=== PATIENT | male | born 1965 | race Caucasian/White ===

== ENCOUNTER 2017-07-29 12:26 | Inpatient (IN) | payer BC ==
[~2017-07-29] VITALS: Ht 172.7 cm; Wt 93.0 kg
--- NOTE | ~2017-07-29 | ST ---
[place], [place] EXERCISE STRESS TEST REPORT NAME: ARLET LYON V [facility] #: [id number] UNIT #: [id number] ROOM: 521 DOCTOR: CARL MCKEON MD BIRTHDATE: [birth year] DOS: 07/30/2017 REQUESTING PHYSICIAN: New onset atrial fibrillation and fatigue. PROCEDURE: The patient was brought into the stress lab. The procedure was explained with risks, benefits, and alternatives. Lexiscan was injected. The patient tolerated the procedure well. Resting blood pressure 118/80 with ending blood pressure 110/64. ELECTROCARDIOGRAM INTERPRETATION: Resting electrocardiogram showed normal sinus rhythm, heart rate of 79. There was tiny Q-wave in II, III, aVF. Mild nonspecific ST changes. Following the infusion, there was no evidence of any ST or T-wave changes suggestive of myocardial ischemia. No arrhythmias were noted. SUMMARY: 1. Adequate Lexiscan stress test. 2. Negative Lexiscan stress test for stress induced myocardial ischemia. 3. No arrhythmias were noted. 4. Myoview results will be reported separately. CARL MCKEON MD CM:STRESS:EXERCISE STRESS TEST REPORT [id number] CARL MCKEON MD
[~2017-07-29 12:26] MED LIST: DUONEB 3 MG/3 ML3 M1 INH; LEVOFLOXACIN500 MG PO; LISINOPRIL HCTZ1 TA1 PO; LOPID600 M1 PO; METFORMIN500 MG PO; PRAVACHOL40 MG PO; VICODIN 500 MG-1 TAB PO; VITAMIN D50000 I3 PO
[2017-07-29 12:38] VITALS: BP 142/84
[2017-07-29 13:24] LABS: BASO # 0.1 10*3/uL (0.0-0.1); BASO % 0.4 % (0.0-1.0); EOS # 0.4 10*3/uL (0.0-0.4); EOS % 3.2 % (1.0-4.0); HEMATOCRIT 39.7 % (42.0-52.0); HEMOGLOBIN 13.9 g/dl (14.0-18.0); LYMPH # 1.6 10*3/uL (1.3-4.4); LYMPH % 13.9 % (27.0-41.0); MEAN CELL VOLUME 91.9 fl (80.0-94.0); MEAN CORPUSCULAR HGB 32.2 pg (27.0-31.0); MEAN PLATELET VOLUME 9.6 fl (9.6-12.3); MONO # 0.8 10*3/uL (0.1-1.0); MONO % 6.9 % (3.0-9.0); NEUT # 8.8 10*3/uL (2.3-7.9); NEUT % 75.3 % (47.0-73.0); PLATELET COUNT AUTOMATED 242 10*3/uL (130-400); RED BLOOD COUNT 4.32 10*6/uL (4.50-5.90); WHITE BLOOD COUNT 11.7 10*3/uL (4.8-10.8)
[2017-07-29 13:41] LABS: ALBUMIN 3.6 gm/dl (3.1-4.5); ALKALINE PHOSPHATASE 90 U/L (45-117); BUN 27 mg/dl (7-24); CHLORIDE 108 mmol/L (98-107); CREATININE 1.34 mg/dL (0.70-1.30); POTASSIUM 3.4 mmol/L (3.5-5.1); SGOT/AST 25 IU/L (3-35); SGPT/ALT 45 U/L (12-78); SODIUM 141 mmol/L (136-145); TROPONIN I < 0.015 ng/ml (<0.045)
[2017-07-29 14:00] VITALS: BP 129/85
[2017-07-29 14:04] VITALS: BP 146/99
[2017-07-29] MEDS ORDERED: ZOLOFT50 MG PO (14:44)
[2017-07-29] MEDS ORDERED: HYDR25T PO (14:44)
[2017-07-29] MEDS ORDERED: PRAVASTATIN SOD40 MG PO (14:44)
[2017-07-29] MEDS ORDERED: ZESTRIL40 MG PO (14:44)
[2017-07-29] MEDS ORDERED: IBU800 MG PO (14:45)
[2017-07-29] MEDS ORDERED: METFORMIN500 MG PO (14:45)
[2017-07-29] MEDS ORDERED: GEMFIBROZIL600 MG PO (14:45)
--- NOTE | 2017-07-29 15:34 | NUR ---
Time: 1529 A 52 year old MALE admitted to 5E under services of ILSA GALDAMEZ DO, Pt. arrived via STRETCHER from ER. Chief complaint: NEW ONSET AFIB. OMAR MAHARAJ
[2017-07-29 16:00] VITALS: BP 145/76
[2017-07-29 18:50] VITALS: BP 147/77
[2017-07-29 20:00] VITALS: BP 136/77
--- NOTE | 2017-07-29 21:00 | NUR ---
RESTING IN BED WITH NO DISTRESS NOTED. RESPIRATIONS EASY. LUNGS DIMINISHED, CLEAR. PULSE OX 98% RA. INFREQUENT COUGH NOTED, NON-PRODUCTIVE IN NATURE. OFFERED AND EDUCATED REGARDING TEDS, DECLINED. NPO STATUS DISCUSSED AFTER MIDNIGHT FOR TESTING IN AM, VOICED UNDERSTANDING. CALL LIGHT WITHIN REACH. NO VOICED COMPLAINTS
[2017-07-30] VITALS: BP 137/74
--- NOTE | 2017-07-30 00:45 | NUR ---
REQUESTED AND RECEIVED RESTORIL TO ASSIST WITH SLEEP. MED GIVEN WITH SIP OF WATER. WILL MONITOR FOR EFFECTIVENESS
--- NOTE | 2017-07-30 02:00 | NUR ---
MEDS APPEAR EFFECTIVE. SLEEPING. RESPIRATIONS EASY. CALL LIGHT WITHIN REACH
--- NOTE | 2017-07-30 06:00 | NUR ---
slept throughout night with no distress noted. respirations easy. npo status maintained for testing this am. call light within reach. no voiced complaints this shift
[2017-07-30 06:21] LABS: BASO % 0.4 % (0.0-1.0); EOS # 0.6 10*3/uL (0.0-0.4); EOS % 7.5 % (1.0-4.0); HEMATOCRIT 37.8 % (42.0-52.0); LYMPH # 1.7 10*3/uL (1.3-4.4); LYMPH % 21.6 % (27.0-41.0); MEAN CELL VOLUME 93.8 fl (80.0-94.0); MEAN CORPUSCULAR HGB 32.3 pg (27.0-31.0); MEAN CORPUSCULAR HGB CONC 34.4 g/dl (33.0-37.0); MONO # 0.7 10*3/uL (0.1-1.0); MONO % 9.2 % (3.0-9.0); NEUT # 4.7 10*3/uL (2.3-7.9); NEUT % 60.9 % (47.0-73.0); PLATELET COUNT AUTOMATED 211 10*3/uL (130-400); RED BLOOD COUNT 4.03 10*6/uL (4.50-5.90); RED CELL DISTRI WIDTH 12.1 % (0-14.5); WHITE BLOOD COUNT 7.6 10*3/uL (4.8-10.8)
[2017-07-30 06:51] LABS: ALBUMIN 3.5 gm/dl (3.1-4.5); BUN 18 mg/dl (7-24); CHLORIDE 105 mmol/L (98-107); CHOLESTEROL 169 mg/dL (<200); MAGNESIUM 1.9 mg/dL (1.5-2.1); PHOSPHOROUS 2.6 mg/dL (2.5-4.9); POTASSIUM 3.2 mmol/L (3.5-5.1); SGOT/AST 33 IU/L (3-35); SGPT/ALT 44 U/L (12-78); SODIUM 140 mmol/L (136-145)
[2017-07-30 07:00] LABS: ALKALINE PHOSPHATASE 82 U/L (45-117); HDL CHOLESTEROL 35 mg/dl (40-60); TOTAL PROTEIN 6.6 gm/dL (6.4-8.2); TRIGLYCERIDES 687 mg/dl (<150)
[2017-07-30 07:04] LABS: ACT PARTIAL THROMBO TIME 22.1 SECONDS (20.8-31.5)
[2017-07-30 08:00] VITALS: BP 118/78
--- NOTE | 2017-07-30 09:00 | NUR ---
Film Waxer in to talk to patient. Patient states lives at home with alone. There are few steps in the home. Physician: [facility] Pharmacy: [facility] services: none Patient's level of ADLs: Patient has working utilities: all working DME: none Follow-up physician's appointment after d/c: will be made by hospitalist nurse director upon discharge Does patient want to access PORTAL?: no Discharge plan discussed with patient, patient lives at home alone, he is independent in adls and ambulation, drives works, patient states he doesn't have any home needs, patient also states that he would like to have an appointment made with Dr Uribe. will notify hosptialist nurse director. MORENO PARRA
--- NOTE | 2017-07-30 10:35 | NUR ---
INFORMED CONSENT SIGNED FOR LEXISCAN STRESS TEST WITH DR. MCKEON. RESTING HR NSR, HR 79, 118/80. PULSE OX 98% AND LUNGS CLEAR. COMPLETED ONE MINUTE OF LEXISCAN PROTOCOL RECEIVING LEXISCAN 0.4MG OVER 10 SECONDS. NO ARRHYTHMI[address] OR ST CHANGES NOTED. PT C/O ODD FEELING. LAST RECOVERY HR 100, BP 104/66. WAITING NUCLEAR SCANNING IN STABLE CONDITION.
[2017-07-30 12:00] VITALS: BP 123/56
[2017-07-30 16:00] VITALS: BP 130/78
[2017-07-30] MEDS ORDERED: LOPRESSOR25 MG PO (16:06)
[2017-07-30] MEDS ORDERED: Vitamin D PO (16:06)
[2017-07-30] MEDS ORDERED: ELIQUIS5 M1 PO (16:06)
[2017-07-30] MEDS ORDERED: VISTARIL25 MG PO (16:08)
--- NOTE | 2017-07-30 17:15 | NUR ---
Discharge instructions reviewed with patient/family. Patient receptive and verbalizes understanding. Follow-up care arranged. Written instructions given to patient/family. HEPLOCK REMOVED. PRESCRIPTIONS GIVEN. PATIENT AMBULATORY OFF FLOOR. SHYANNE SERVIN
== END 2017-07-30 17:15 | disposition home or self-care (01) | DRG 310 ==
LOC: ED 12:26 → 5E 13:55 → EDHOLD 13:55 → 5E 14:03
PROVIDERS: Emergency Medicine; Internal Medicine Nephrology; ADMIT Internal Medicine
DX: I48.91 Unspecified atrial fibrillation (principal); E87.8 Other disorders of electrolyte and fluid balance, not elsewhere classified; E11.65 Type 2 diabetes mellitus with hyperglycemia; E87.6 Hypokalemia; D72.829 Elevated white blood cell count, unspecified; D64.9 Anemia, unspecified; D72.810 Lymphocytopenia; E66.01 Morbid (severe) obesity due to excess calories; E78.5 Hyperlipidemia, unspecified; I10 Essential (primary) hypertension; F32.9 Major depressive disorder, single episode, unspecified; E55.9 Vitamin D deficiency, unspecified; Z82.49 Family history of ischemic heart disease and other diseases of the circulatory system; Z79.899 Other long term (current) drug therapy; Z68.31 Body mass index [BMI] 31.0-31.9, adult

== ENCOUNTER → 2017-08-02 | Outpatient (CLI) | payer BC ==
[~2017-08-02] MED LIST changes: +ELIQUIS5 M1 PO; +GEMFIBROZIL600 MG PO; +HYDR25T PO; +IBU800 MG PO; +LOPRESSOR25 MG PO; +PRAVASTATIN SOD40 MG PO; +VISTARIL25 MG PO; +Vitamin D PO; +ZESTRIL40 MG PO; +ZOLOFT50 MG PO
[2017-08-02 11:00] LABS: BUN 28 mg/dl (7-24); CHLORIDE 107 mmol/L (98-107); CREATININE 1.27 mg/dL (0.70-1.30); SODIUM 140 mmol/L (136-145)
== END | disposition home or self-care (01) ==
LOC: LAB 10:17
PROVIDERS: Internal Medicine Nephrology
DX: E87.6 Hypokalemia (principal)

== ENCOUNTER 2018-02-24 08:51 | Emergency (ER) | payer BC ==
[~2018-02-24] VITALS: Ht 172.7 cm; Wt 95.3 kg
[2018-02-24 09:49] LABS: BASO % 0.4 % (0.0-1.0); EOS # 0.2 10*3/uL (0.0-0.4); EOS % 1.3 % (1.0-4.0); HEMATOCRIT 34.5 % (42.0-52.0); HEMOGLOBIN 12.4 g/dl (14.0-18.0); LYMPH # 1.6 10*3/uL (1.3-4.4); LYMPH % 14.5 % (27.0-41.0); MEAN CORPUSCULAR HGB 32.7 pg (27.0-31.0); MEAN CORPUSCULAR HGB CONC 35.9 g/dl (33.0-37.0); MEAN PLATELET VOLUME 9.6 fl (9.6-12.3); MONO # 1.1 10*3/uL (0.1-1.0); NEUT # 8.2 10*3/uL (2.3-7.9); NEUT % 73.3 % (47.0-73.0); PLATELET COUNT AUTOMATED 273 10*3/uL (130-400); RED BLOOD COUNT 3.79 10*6/uL (4.50-5.90); RED CELL DISTRI WIDTH 12.1 % (0-14.5); WHITE BLOOD COUNT 11.2 10*3/uL (4.8-10.8)
[2018-02-24 10:06] LABS: ALBUMIN 3.9 gm/dl (3.1-4.5); ALKALINE PHOSPHATASE 117 U/L (45-117); BUN 71 mg/dl (7-24); CHLORIDE 97 mmol/L (98-107); POTASSIUM 3.3 mmol/L (3.5-5.1); SGOT/AST 31 IU/L (3-35); SGPT/ALT 44 U/L (12-78); SODIUM 134 mmol/L (136-145)
[2018-02-24 10:07] LABS: TROPONIN I < 0.015 ng/ml (<0.045)
[2018-02-24 12:14] VITALS: BP 125/75
== END 2018-02-24 13:07 | disposition home or self-care (01) ==
LOC: ED 08:51
PROVIDERS: Student in an Organized Health Care Education/Training Program
DX: E86.0 Dehydration (principal); N28.9 Disorder of kidney and ureter, unspecified; I48.91 Unspecified atrial fibrillation; E78.00 Pure hypercholesterolemia, unspecified; E78.5 Hyperlipidemia, unspecified; I10 Essential (primary) hypertension; E66.9 Obesity, unspecified; E11.65 Type 2 diabetes mellitus with hyperglycemia; Z87.442 Personal history of urinary calculi; Z79.899 Other long term (current) drug therapy

== ENCOUNTER → 2018-02-28 | Outpatient (CLI) | payer BC ==
[2018-02-28 11:56] LABS: BASO # 0.1 10*3/uL (0.0-0.1); BASO % 0.5 % (0.0-1.0); EOS # 0.4 10*3/uL (0.0-0.4); EOS % 3.7 % (1.0-4.0); HEMATOCRIT 31.9 % (42.0-52.0); HEMOGLOBIN 10.8 g/dl (14.0-18.0); LYMPH # 1.5 10*3/uL (1.3-4.4); MEAN CELL VOLUME 95.2 fl (80.0-94.0); MEAN CORPUSCULAR HGB 32.2 pg (27.0-31.0); MEAN CORPUSCULAR HGB CONC 33.9 g/dl (33.0-37.0); MEAN PLATELET VOLUME 9.8 fl (9.6-12.3); MONO # 0.9 10*3/uL (0.1-1.0); MONO % 9.1 % (3.0-9.0); NEUT # 6.7 10*3/uL (2.3-7.9); NEUT % 70.1 % (47.0-73.0); PLATELET COUNT AUTOMATED 265 10*3/uL (130-400); RED BLOOD COUNT 3.35 10*6/uL (4.50-5.90); RED CELL DISTRI WIDTH 12.6 % (0-14.5); WHITE BLOOD COUNT 9.5 10*3/uL (4.8-10.8)
[2018-02-28 12:22] LABS: CREATININE 1.48 mg/dL (0.70-1.30); POTASSIUM 3.7 mmol/L (3.5-5.1)
== END | disposition home or self-care (01) ==
LOC: LAB 11:18
PROVIDERS: Nurse Practitioner Primary Care
DX: D72.820 Lymphocytosis (symptomatic) (principal); N28.9 Disorder of kidney and ureter, unspecified

== ENCOUNTER 2018-08-14 13:08 | Inpatient (IN) | payer SELFPAY ==
[~2018-08-14] VITALS: Ht 175.2 cm; Wt 95.8 kg
--- NOTE | ~2018-08-14 | EKG ---
[place], [place] ELECTROCARDIOGRAM REPORT NAME: ARLET LYON V UNIT #: [id number] ROOM: [place] [address] DOCTOR: CAMILO DRAFT REPORT BIRTHDATE: [birth year] [facility] Test Date: 2018-08-14 Test Time: 13:23:42 Pat Name: ARLET LYON Department: Room: [place] [address] Gender: M Engineer Specialist: Ruby Taylor : 1965 Requested By: KELSEY ORTA Order Number: [id number] Reading MD: Rebecca Aguirre MD Measurements Intervals [place] Rate: 111 P: 45 KS: 146 QRS: 46 QRSD: 105 T: -7 QT: 367 QTc: 499 Interpretive Statements Sinus tachycardia Probable inferior infarct, age indeterminate Baseline wander in lead(s) V4 No previous ECG available for comparison Electronically Signed On 08-15-2018 11:00:03 PDT by Rebecca Aguirre MD CM:EKGRPT:ELECTROCARDIOGRAM REPORT [id number] 1100 KELSEY PAGE DRAFT REPORT KELSEY ORTA MD
[2018-08-14 13:09] VITALS: BP 187/122
[2018-08-14 13:34] LABS: ACT PARTIAL THROMBO TIME 23.7 SECONDS (20.8-31.5); INTERNATIONAL NORM RATIO 1.1 (2.0-3.5)
[2018-08-14 13:41] LABS: BASO # 0.1 10*3/uL (0.0-0.1); BASO % 0.6 % (0.0-1.0); EOS % 0.4 % (1.0-4.0); HEMATOCRIT 38.1 % (42.0-52.0); HEMOGLOBIN 12.5 g/dl (14.0-18.0); LYMPH # 0.6 10*3/uL (1.3-4.4); LYMPH % 6.5 % (27.0-41.0); MEAN CELL VOLUME 101.1 fl (80.0-94.0); MEAN CORPUSCULAR HGB 33.2 pg (27.0-31.0); MEAN CORPUSCULAR HGB CONC 32.8 g/dl (33.0-37.0); MEAN PLATELET VOLUME 9.5 fl (9.6-12.3); MONO # 0.5 10*3/uL (0.1-1.0); MONO % 5.3 % (3.0-9.0); NEUT # 7.7 10*3/uL (2.3-7.9); NEUT % 86.8 % (47.0-73.0); NUCLEATED RED BLOOD CELL 0.2 % (0.0-0.0); PLATELET COUNT AUTOMATED 267 10*3/uL (130-400); RED BLOOD COUNT 3.77 10*6/uL (4.50-5.90); RED CELL DISTRI WIDTH 14.6 % (0-14.5); WHITE BLOOD COUNT 8.9 10*3/uL (4.8-10.8)
[2018-08-14 13:46] LABS: ALBUMIN 3.5 gm/dl (3.1-4.5); ALKALINE PHOSPHATASE 111 U/L (45-117); BUN 7 mg/dl (7-24); CHLORIDE 99 mmol/L (98-107); CREATININE 1.24 mg/dL (0.70-1.30); ETHYL ALCOHOL < 3.0 mg/dl (<3); POTASSIUM 3.8 mmol/L (3.5-5.1); SGOT/AST 130 IU/L (3-35); SGPT/ALT 101 U/L (12-78); SODIUM 134 mmol/L (136-145); TOTAL PROTEIN 7.2 gm/dL (6.4-8.2); TROPONIN I 0.021 ng/ml (<0.045)
[2018-08-14 13:50] VITALS: BP 163/97
[2018-08-14 15:10] LABS: BILIRUBIN NEGATIVE (NEGATIVE); BLOOD 1+ (NEGATIVE); CLARITY CLEAR (CLEAR); COLOR YELLOW (YELLOW); GLUCOSE 2+ (NEGATIVE); KETONE 2+ (NEGATIVE); LEUKO ESTERASE NEGATIVE (NEGATIVE); NITRITE NEGATIVE (NEGATIVE); UROBILINOGEN 0.2 E.U./dl (0.2-1.0)
[2018-08-14 15:17] LABS: BACTERIA TRACE; MUCOUS TRACE
[2018-08-14 15:18] LABS: EPITHELIAL CELLS 0-2; WBC 0-2 wbc/hpf (0-5)
[2018-08-14 15:19] LABS: URINE AMPHETAMINES < 1000 (1000ng/ml); URINE BARBITURATES < 200 (200ng/ml); URINE BENZODIAZEPINES < 200 (200ng/ml); URINE CANNABINOIDS (THC) < 50 (50ng/ml); URINE COCAINE < 300 (300ng/ml); URINE METHADONE < 300 (300ng/ml); URINE OPIATES < 300 (300ng/ml); URINE PHENCYCLIDINE < 25 (25ng/ml)
[2018-08-14 15:20] VITALS: BP 170/90
[2018-08-14] MEDS ORDERED: ZESTRIL40 MG PO (15:38)
[2018-08-14] MEDS ORDERED: ZOLOFT25 MG PO (15:39)
[2018-08-14 15:42] VITALS: BP 180/89
[2018-08-14 17:00] VITALS: BP 160/80
[2018-08-14] MEDS ORDERED: ELIQUIS5 M1 PO (17:45)
[2018-08-14 19:39] LABS: TROPONIN I 0.039 ng/ml (<0.045)
[2018-08-14 20:00] VITALS: BP 168/96
[2018-08-15] VITALS: BP 138/82
[2018-08-15 04:00] VITALS: BP 157/98
[2018-08-15 05:57] LABS: ALKALINE PHOSPHATASE 98 U/L (45-117); BUN 9 mg/dl (7-24); CHLORIDE 97 mmol/L (98-107); CHOLESTEROL 240 mg/dL (<200); CREATININE 0.89 mg/dL (0.70-1.30); HDL CHOLESTEROL 41 mg/dl (40-60); LDL CHOLESTEROL 149 mg/dL (9-159); POTASSIUM 3.8 mmol/L (3.5-5.1); SGOT/AST 78 IU/L (3-35); SGPT/ALT 78 U/L (12-78); SODIUM 134 mmol/L (136-145); TOTAL PROTEIN 6.6 gm/dL (6.4-8.2); TRIGLYCERIDES 252 mg/dl (<150); VLDL CHOLESTEROL 50 mg/dL (6-40)
[2018-08-15 06:03] LABS: FREE T4 0.87 ng/dl (0.76-1.46)
[2018-08-15 06:08] LABS: HEMATOCRIT 36.7 % (42.0-52.0); HEMOGLOBIN 12.2 g/dl (14.0-18.0); MEAN CELL VOLUME 102.2 fl (80.0-94.0); MEAN CORPUSCULAR HGB CONC 33.2 g/dl (33.0-37.0); MEAN PLATELET VOLUME 9.6 fl (9.6-12.3); NUCLEATED RED BLOOD CELL 0.4 % (0.0-0.0); PLATELET COUNT AUTOMATED 192 10*3/uL (130-400); RED BLOOD COUNT 3.59 10*6/uL (4.50-5.90); RED CELL DISTRI WIDTH 14.2 % (0-14.5); WHITE BLOOD COUNT 7.2 10*3/uL (4.8-10.8)
[2018-08-15 06:27] LABS: ACT PARTIAL THROMBO TIME 24.4 SECONDS (20.8-31.5); INTERNATIONAL NORM RATIO 1.1 (2.0-3.5)
[2018-08-15 07:59] LABS: ATYPICAL LYMPHS 1 % (0-0); PLATELET SUFFICIENCY NORMAL (NORMAL); TOTAL CELLS COUNTED 100 #CELLS
[2018-08-15 08:00] VITALS: BP 150/80
[2018-08-15 12:00] VITALS: BP 160/84
[2018-08-15 16:00] VITALS: BP 119/73
[2018-08-15 20:00] VITALS: BP 114/83
[2018-08-16] VITALS: BP 130/80
[2018-08-16 04:00] VITALS: BP 105/75
[2018-08-16 06:15] LABS: BASO % 0.2 % (0.0-1.0); EOS % 0.7 % (1.0-4.0); HEMATOCRIT 33.3 % (42.0-52.0); HEMOGLOBIN 10.9 g/dl (14.0-18.0); LYMPH # 1.1 10*3/uL (1.3-4.4); MEAN CELL VOLUME 102.1 fl (80.0-94.0); MEAN CORPUSCULAR HGB 33.4 pg (27.0-31.0); MEAN CORPUSCULAR HGB CONC 32.7 g/dl (33.0-37.0); MEAN PLATELET VOLUME 9.8 fl (9.6-12.3); MONO # 0.3 10*3/uL (0.1-1.0); MONO % 5.4 % (3.0-9.0); NEUT # 4.6 10*3/uL (2.3-7.9); NEUT % 75.2 % (47.0-73.0); PLATELET COUNT AUTOMATED 149 10*3/uL (130-400); RED BLOOD COUNT 3.26 10*6/uL (4.50-5.90); RED CELL DISTRI WIDTH 14.3 % (0-14.5); WHITE BLOOD COUNT 6.1 10*3/uL (4.8-10.8)
[2018-08-16 06:29] LABS: ALBUMIN 2.7 gm/dl (3.1-4.5); ALKALINE PHOSPHATASE 77 U/L (45-117); BUN 11 mg/dl (7-24); CHLORIDE 99 mmol/L (98-107); CREATININE 1.22 mg/dL (0.70-1.30); PHOSPHOROUS 3.1 mg/dL (2.5-4.9); POTASSIUM 2.7 mmol/L (3.5-5.1); SGOT/AST 82 IU/L (3-35); SGPT/ALT 60 U/L (12-78); SODIUM 134 mmol/L (136-145); TOTAL PROTEIN 5.5 gm/dL (6.4-8.2)
[2018-08-16 08:00] VITALS: BP 148/85
[2018-08-16 11:55] VITALS: BP 130/80
[2018-08-16 16:00] VITALS: BP 148/58
[2018-08-16 19:00] VITALS: BP 142/89
[2018-08-17] VITALS: BP 139/75
[2018-08-17 04:00] VITALS: BP 138/74
[2018-08-17 06:00] LABS: BUN 11 mg/dl (7-24); CHLORIDE 106 mmol/L (98-107); CREATININE 1.07 mg/dL (0.70-1.30); PHOSPHOROUS 2.2 mg/dL (2.5-4.9); POTASSIUM 3.4 mmol/L (3.5-5.1); SODIUM 138 mmol/L (136-145)
[2018-08-17 06:36] LABS: BASO % 0.3 % (0.0-1.0); EOS # 0.1 10*3/uL (0.0-0.4); EOS % 2.2 % (1.0-4.0); HEMATOCRIT 34.1 % (42.0-52.0); LYMPH # 1.1 10*3/uL (1.3-4.4); LYMPH % 17.8 % (27.0-41.0); MEAN CORPUSCULAR HGB CONC 32.3 g/dl (33.0-37.0); MEAN PLATELET VOLUME 10.2 fl (9.6-12.3); MONO # 0.4 10*3/uL (0.1-1.0); MONO % 5.9 % (3.0-9.0); NEUT # 4.7 10*3/uL (2.3-7.9); NEUT % 73.2 % (47.0-73.0); PLATELET COUNT AUTOMATED 152 10*3/uL (130-400); RED BLOOD COUNT 3.24 10*6/uL (4.50-5.90); RED CELL DISTRI WIDTH 14.8 % (0-14.5); WHITE BLOOD COUNT 6.4 10*3/uL (4.8-10.8)
[2018-08-17 06:44] LABS: MEAN CELL VOLUME 105.2 fl (80.0-94.0)
== END 2018-08-17 05:42 | disposition left against medical advice (07) | DRG 871 ==
LOC: ED 13:08 → EDHOLD 15:15 → ICCU 15:15
PROVIDERS: Emergency Medicine; Internal Medicine; Student in an Organized Health Care Education/Training Program
DX: A41.9 Sepsis, unspecified organism (principal); J69.0 Pneumonitis due to inhalation of food and vomit; E87.1 Hypo-osmolality and hyponatremia; F10.232 Alcohol dependence with withdrawal with perceptual disturbance; E66.9 Obesity, unspecified; E55.9 Vitamin D deficiency, unspecified; R65.20 Severe sepsis without septic shock; I48.91 Unspecified atrial fibrillation; E83.42 Hypomagnesemia; R80.9 Proteinuria, unspecified; I34.0 Nonrheumatic mitral (valve) insufficiency; R31.9 Hematuria, unspecified; Z53.21 Procedure and treatment not carried out due to patient leaving prior to being seen by health care provider; Y90.9 Presence of alcohol in blood, level not specified; E11.65 Type 2 diabetes mellitus with hyperglycemia; R74.0 Nonspecific elevation of levels of transaminase and lactic acid dehydrogenase [LDH]; E78.1 Pure hyperglyceridemia; F32.9 Major depressive disorder, single episode, unspecified; I10 Essential (primary) hypertension; Z87.442 Personal history of urinary calculi; Z82.49 Family history of ischemic heart disease and other diseases of the circulatory system; Z95.1 Presence of aortocoronary bypass graft; Z87.898 Personal history of other specified conditions; Z79.899 Other long term (current) drug therapy; Z78.9 Other specified health status; Z68.31 Body mass index [BMI] 31.0-31.9, adult

== ENCOUNTER 2018-09-09 10:14 | Inpatient (IN) | payer SELFPAY ==
[2018-09-09] VITALS (7 sets, daily range): BP systolic 128–162; BP diastolic 60–105
[~2018-09-09] VITALS: Ht 175.2 cm
--- NOTE | ~2018-09-09 | PR ---
[place], [place] PROGRESS NOTE [id number] UNIT #: [id number] ROOM: [facility] DOCTOR: ULI ASCENCIO MD BIRTHDATE: [birth year] DOS: 09/13/2018 SUBJECTIVE: The patient has been seen and examined in [id number] encounter, history was confirmed. Physical examination of the patient was performed. All the labs were reviewed. The note done by the medical microbiologist was approved. The assessment and management of the patient for today's visit were personally made. OBJECTIVE: VITAL SIGNS: Vital signs of the patient this morning were noted all normal. The pulse oxygen saturation on room air at rest was 95% saturation. HEENT: Chronic obesity. NECK: Supple. CARDIOVASCULAR: S1, S2 audible. LUNGS: Clear to auscultation bilaterally. ABDOMEN: Soft, nontender. EXTREMITIES: No acute edema. LABORATORY DATA: BMP of the patient noted essentially normal. CBC, normal WBC count. Respiratory virus panel of the patient from 09/10/2018 was negative. IMPRESSION: 1. The patient has been noted with resolution of acute sepsis and acute bronchitis. 2. Atrial fibrillation history, currently noted with controlled response. 3. Severe obesity. 4. Type 2 diabetes mellitus. 5. Improvement in the alcohol withdrawal. PLAN OF MANAGEMENT: Consideration for home discharge on oral medication with outpatient assessment will benefit the patient to be assessed for the obstructive sleep apnea disorder and other pulmonary assessment if he desires to do so. Other therapy, plan of management as previously. [place], [place] PROGRESS NOTE NAME: ARLET LYON V [facility] #: [id number] UNIT #: [id number] ROOM: [facility] DOCTOR: ULI ASCENCIO MD BIRTHDATE: [birth year] ULI CANO MD CM:GERMAN [id number] ULI OJEDA MD 09/14/18 0020 interface
--- NOTE | ~2018-09-09 | PR ---
[place], [place] PROGRESS NOTE NAME: ARLET LYON V [facility] #: [id number] UNIT #: [id number] ROOM: 517 DOCTOR: JEROME OJEDA MD,ULI BIRTHDATE: [birth year] DOS: 09/11/2018 SUBJECTIVE: The patient has been noted comfortable, transferred to the Intensive Care Unit as the patient was initially treated on telemetry floor because of increased requirement of oxygen with history of alcohol withdrawal. The patient has not been noted with any symptoms of fever or chills. He has been noted awake and alert this morning. Denies symptoms of nausea or vomiting. The patient denies symptoms of hemoptysis, chest pain, dysuria, or suprapubic pain. Denies any edema or pain of the lower extremities. This afternoon, the patient was examined, he has been comfortably lying on the bed. Review of systems otherwise completed to be negative. Absence of any seizures. OBJECTIVE: VITAL SIGNS: Normal temperature, respiratory rate 18, heart rate of 76-115 with mild sinus tachycardia, blood pressure 142/85 to 156/95. Pulse oxygen saturation on room air is 96% saturation. HEENT: Examination shows head was atraumatic. Eyes nonicterus. NECK: Supple. CARDIOVASCULAR: S1, S2 is audible. LUNGS: Noted with decreased breaths in the lungs bilaterally. ABDOMEN: Soft with chronic obesity, bowel sounds present, without any tenderness. VISIBLE SKIN: No lesions or rashes. CENTRAL NERVOUS SYSTEM: Cranial nerves 2 through 12 are intact. MUSCULOSKELETAL: Without any acute deformities. LABORATORY DATA: CBC today: WBC count 7.3, hemoglobin 11, hematocrit 32, MCV 105, and platelet count 110,000, mildly decreased. BMP today: Glucose 250, BUN and creatinine normal, potassium 3.1. RADIOLOGY: Ultrasound of the liver was completed yesterday for assessment of the abnormal liver functions, reported as diffuse hepatic steatosis, otherwise unremarkable study. MICROBIOLOGY: Blood culture from 09/09/2018 noted without any bacterial growth. IMPRESSION: The patient who has been currently admitted to the hospital with findings of: 1. Acute sepsis, most likely viral in origin, and acute bronchitis as well. 2. Morbid/severe obesity. 3. History of chronic atrial fibrillation, currently noted controlled rate this morning, but noted with rapid ventricular response previously. 4. Acute alcohol withdrawal, requiring high amount of sedation which seemed to be the effect of alcohol withdrawal, seemed to be in control. 5. Type 2 diabetes mellitus. PLAN OF MANAGEMENT: Continue current plan of management, observation in the Intensive Care Unit. Monitor respiratory status closely. Bronchodilators, oxygen supplementation. Other therapy plan of management, care plan and treatment. Additional treatment changes will be ordered based on progression of [place], [place] PROGRESS NOTE NAME: ARLET LYON V UNIT #: [id number] ROOM: [facility] DOCTOR: JEROME OJEDA MD,ULI BIRTHDATE: [birth year] illness. Monitor liver function tests. Usual care. Supportive care, other therapies, plan of care and treatments. ULI CANO MD CM:JARRODTRANS [id number] ULI OJEDA MD 09/22/18 0906 interface
--- NOTE | ~2018-09-09 | CON ---
[place], [place] REPORT OF CONSULTATION NAME: ARLET LYON V [facility] #: [id number] UNIT #: [id number] ROOM: 517 DOCTOR: ULI ASCENCIO MD BIRTHDATE: [birth year] DOS: 09/10/2018 PULMONARY CONSULTATION, EVALUATION AND MANAGEMENT CONSULTATION REQUESTED BY: Hospitalist services. REASON FOR CONSULTATION: For assessment of current symptoms of shortness of breath and others. HISTORY OF PRESENT ILLNESS: This is a 53-year-old white male, known to me, has been admitted to the hospital under the hospitalist service on 09/09/2017. The patient presented to the Emergency Room with symptoms having increased shortness of breath ongoing for about a few weeks. The symptoms have been noted progressively worse. Later, the patient reported symptoms of coughing with white sputum expectoration and also reported symptoms of fever. He also reported symptoms of chills as well. The patient does complain of symptoms of chest pain, which is described in the retrosternal area, worsened with deep inspiratory effort, scale of 1-10 up to 5 or 6. The patient presented to the Emergency Room. He has been noted with negative chest x-ray. The CT of the chest does not show any evidence of pulmonary embolism or pulmonary infiltration. Bullous formation was noted in the left upper lobe. The patient was also noted lactic acidosis. The patient's lactic acid 5.6 as well. He has been started on intravenous antibiotic of the medical management, currently hospitalized. REVIEW OF SYSTEMS: CONSTITUTIONAL: Fatigue and tiredness noted. No symptoms of fever or chills. EYES: Denies burning, redness, or tenderness. EARS, NOSE, THROAT SYMPTOMS: Denies sore throat, hoarseness, otalgia, postnasal drainage or epistaxis. CARDIOVASCULAR: No angina pain, edema, or pain in lower extremities. GASTROINTESTINAL: Denies dysphagia, nausea, vomiting, diarrhea, abdominal pain, hematemesis, melena, or hematochezia. GENITOURINARY: No dysuria, suprapubic pain, or hematuria. SKIN: No lesions or rashes. CENTRAL NERVOUS SYSTEM: No dizziness, diplopia, seizures or migraine headache. Remaining systems were reviewed. They were noted all negative. PAST MEDICAL HISTORY: 1. The patient's hospitalization in end of July 2018 for the management, pneumonia leaving against medical advice at that time after a couple of days. 2. History of chronic alcohol dependence. The patient drinking whiskey every day. 3. The patient with obesity. 4. Essential hypertension. 5. History of triglyceridemia. 6. Type 2 diabetes mellitus. 7. Vitamin D deficiency. 8. Nephrolithiasis. [place], [place] REPORT OF CONSULTATION NAME: ARLET LYON V UNIT #: [id number] ROOM: [facility] DOCTOR: MINH ASCENCIO MDM BIRTHDATE: [birth year] 9. History of atrial fibrillation. PAST SURGICAL HISTORY: Noted with lithotripsy and stent insertion for the medical management of kidney stones. SOCIAL HISTORY: The patient stated he is . He has 2 children. Denies any history of other illicit drug use or any tobacco use. The alcohol is noted use of a 4-5 drinks of whiskey every day basis for many years. FAMILY HISTORY: Both parents have been due to old age. Further details were unknown by the patient. HOME MEDICATIONS: Listed use of lisinopril, Eliquis, sertraline and other p.r.n. medications. DRUG ALLERGIES: Noted with no known drug allergies. PHYSICAL EXAMINATION: GENERAL: This is a 53-year-old white male who has been noted currently awake and alert without acute distress. This morning assessment, was lying in the bed. His bed was padded from insight to prevent any physical damage if the patient does have seizures. Height was noted 5 feet 9 inches, weight 175 pounds. VITAL SIGNS: For the patient which was recorded shows the patient recorded as normal since hospitalization. In the last 24 hours, respiratory rate ranging between 30-18, heart rate of 84-106, blood pressure 156/90-133/56. Pulse oxygen saturation on room air was 97% saturation. HEENT: Examination shows head was atraumatic, moderate obese. NECK: Supple. Oral mucosa was moist. CARDIOVASCULAR: S1, S2 is audible. LUNGS: The patient noted free of any wheezing or crackle. Breaths are noted mild to moderate decreased bilaterally. ABDOMEN: Soft and obese. EXTREMITIES: No acute edema. MUSCULOSKELETAL: Without acute deformities. CENTRAL NERVOUS SYSTEM: The patient's cranial nerves 2-12 intact. LABORATORY DATA: Reviewed. PT, PTT that was done yesterday on admission was noted with INR normal, PTT normal. CBC that was done yesterday, WBC count normal, hemoglobin 12.5 and 37.5, platelet count of 170,000. CMP; glucose 257, BUN and creatinine was normal. Potassium 3.0. AST and ALT was elevated as well as alkaline phosphatase mildly elevated as well. Ethyl alcohol level noted at 46 on admission. The magnesium and lipid level yesterday noted normal. Ketone in the serum was negative. Followup lactic acid was gradually decreased to 2.6 in several hours after the patient received intravenous fluids. CMP that was done this morning, normal BUN and creatinine, glucose 217. CBC, WBC count normal, platelet count was normal, hemoglobin 11.3, hematocrit 34.5. The review of the radiology data: Chest x-ray that was done yesterday was noted free of any acute pulmonary infiltration as reviewed. The patient had a CT of the chest that was done on previous admission was reviewed of 08/14/2018 at that time. [place], [place] REPORT OF CONSULTATION NAME: ARLET LYON V UNIT #: [id number] ROOM: [facility] DOCTOR: MINH ASCENCIO MDM BIRTHDATE: [birth year] There was no evidence of pulmonary embolism. Large bolus was present the left upper lobe noted as approximately 7.2 x 6.9 cm in size. There were no abnormal pulmonary nodule or any visible lymphadenopathy was noted at that time. CT of the chest that was done. Independent review of PACS images. The patient was also noted without any evidence of pulmonary embolism. There was no acute pulmonary infiltration. The blood loss, which are noted large. The patient remains unchanged in the left upper lobe at this time. IMPRESSION: 1. The patient will be currently admitted to the hospital symptom for this patient finding consistent with acute sepsis, possibility of viral origin. There was no evidence of acute pneumonia or a past tobacco use. 2. Incidental finding of large bolus in the patient's left upper lobe. Significant unknown, could be congenital as well. 3. The patient with a history of chronic alcohol dependence for this patient with possible consideration to be kept in mind and alcohol withdrawal. 4. Chronic atrial fibrillation. Currently noted control rate and treated with Eliquis and other medications. 5. History of type 2 diabetes mellitus with hyperglycemia. PLAN OF MANAGEMENT: Continue current antibiotic coverage until the bacterial infection is excluded. Ordered the respiratory viral panel for this patient as well. Look for any other sources of infection of the body as well if present. Other supportive therapy, plan and management changes to be done accordingly. The patient would not require any steroids and does not have any evidence of acute exacerbation of bronchial asthma. The bullous lesion noted left upper lobe, the patient is asymptomatic at this time. Potential surgical resection maybe consider outpatient for after assessment in the office setting for the patient could be done. Thanks for allowing me to participate in the care of this patient. ULI CANO MD CM:CONSTR:REPORT OF CONSULTATION 1208 09/22/18 0905 interface
--- NOTE | ~2018-09-09 | EKG ---
[place], [place] ELECTROCARDIOGRAM REPORT NAME: ARLET LYON V UNIT #: [id number] ROOM: 401 DOCTOR: CAMILO DRAFT REPORT BIRTHDATE: [birth year] [facility] Test Date: 2018-09-09 Test Time: 10:29:29 Pat Name: ARLET LYON Department: Room: 401 Gender: M Crm Marketing Manager: ELENA : 1965 Requested By: KELSEY ORTA Order Number: [id number] Reading MD: Hubert Schneider MD Measurements Intervals [place] Rate: 103 P: MN: QRS: 25 QRSD: 102 T: 0 QT: 363 QTc: 475 Interpretive Statements Atrial fibrillation withRVR Abnormal inferior Q waves Borderline prolonged QT interval Compared to ECG 08/14/2018 13:23:42 Electronically Signed On 09-10-2018 9:32:02 PST by Hubert Schneider MD CM:EKGRPT:ELECTROCARDIOGRAM REPORT 1029 [id number] KELSEY PAGE DRAFT REPORT KELSEY ORTA MD
--- NOTE | ~2018-09-09 | PR ---
[place], [place] PROGRESS NOTE [id number] #: [id number] ROOM: 517 DOCTOR: FLORNECIO GIBBONS BIRTHDATE: [birth year] DOS: 09/13/2018 PULMONARY PROGRESS NOTE SUBJECTIVE: The patient is noted to be quite comfortable at this time. He is in no acute distress and he is alert, awake and oriented this morning. He no longer has his complaints of increased coughing and his shortness of breath has resolved at this time. OBJECTIVE: VITAL SIGNS: Temperature 97.7, pulse rate of 92, respiratory rate 20, blood pressure 130/84. HEENT: Head was atraumatic. Chronic obesity. NECK: Supple. CARDIOVASCULAR: S1, S2 audible. LUNGS: Moderate general reduction in breath sounds bilaterally. ABDOMEN: Soft, nontender and obese. EXTREMITIES: Without any acute edema. IMPRESSION: The patient with: 1. Chronic alcohol dependence with acute sepsis seems to be improving progressively. 2. Atrial fibrillation. 3. Obesity. PLAN OF MANAGEMENT: The patient is able to be discharged at this time. The patient may be discharged on oral antibiotics. No need for steroids. FLORENCIO GIBBONS DO ULI CANO MD CM:PNHUSSAIN [id number] FLORENCIO GIBBONS 09/13/18 1609 interface
--- NOTE | ~2018-09-09 | PR ---
[place], [place] PROGRESS NOTE [id number] UN[facility] #: [id number] ROOM: 517 DOCTOR: JEROME OJEDA MD,ULI BIRTHDATE: [birth year] DOS: 09/12/2018 PULMONARY PROGRESS NOTE SUBJECTIVE: The patient is noted quite comfortable at this time, resting on the bed, without any acute distress, no symptoms of alcohol withdrawal. Noted fully awake, alert, oriented this morning. Coughing and shortness of breath and all other symptoms have been resolving. OBJECTIVE: VITAL SIGNS: Blood pressure 120/65, respiratory rate 24-16, heart rate 94, temperature normal. The pulse oxygen saturation on room air at rest is 94% saturation. HEENT: Head was atraumatic. Chronic obesity. NECK: Supple. CARDIOVASCULAR: S1, S2 audible. LUNGS: Moderate general reduction in breath sounds bilaterally. ABDOMEN: Soft, nontender, and obese. EXTREMITIES: Without any acute edema. IMPRESSION: 1. The patient with chronic alcohol dependence with acute sepsis, which seemed to be improving progressively. 2. Atrial fibrillation. 3. Obesity. PLAN OF MANAGEMENT: The patient could be transferred from the Intensive Care Unit to medical floor as he has been noted doing well with current medical management for alcohol withdrawal. Continuation of bronchodilator therapy, plan of management as in progress. Usual care. Additional treatment changes will be made based on progression of the illness. ULI CANO MD CM:PNTRANS [id number] ULI OJEDA MD 09/12/18 1451 interface
[~2018-09-09 10:14] MED LIST changes: +ZOLOFT25 MG PO
[2018-09-09 10:40] LABS: ABG BASE EXCESS -4.7 mmol/L (-2.0-2.0); ABG HCO3 17.4 mmol/l (22-26); ABG O2 SATURATION 98.8 % (95-97); ARTERIAL BLOOD GAS PCO2 24.7 mmHg (35-45); ARTERIAL BLOOD GAS PH 7.459 (7.35-7.45)
[2018-09-09 10:47] LABS: BASO # 0.1 10*3/uL (0.0-0.1); BASO % 0.9 % (0.0-1.0); EOS # 0.1 10*3/uL (0.0-0.4); EOS % 1.6 % (1.0-4.0); HEMATOCRIT 37.5 % (42.0-52.0); HEMOGLOBIN 12.9 g/dl (14.0-18.0); LYMPH # 0.9 10*3/uL (1.3-4.4); LYMPH % 16.1 % (27.0-41.0); MEAN CELL VOLUME 100.3 fl (80.0-94.0); MEAN CORPUSCULAR HGB 34.5 pg (27.0-31.0); MEAN CORPUSCULAR HGB CONC 34.4 g/dl (33.0-37.0); MEAN PLATELET VOLUME 9.8 fl (9.6-12.3); MONO # 0.4 10*3/uL (0.1-1.0); MONO % 6.8 % (3.0-9.0); NEUT # 4.3 10*3/uL (2.3-7.9); NEUT % 74.3 % (47.0-73.0); PLATELET COUNT AUTOMATED 170 10*3/uL (130-400); RED BLOOD COUNT 3.74 10*6/uL (4.50-5.90); RED CELL DISTRI WIDTH 13.7 % (0-14.5); WHITE BLOOD COUNT 5.8 10*3/uL (4.8-10.8)
[2018-09-09 10:56] LABS: ACT PARTIAL THROMBO TIME 23.6 SECONDS (20.8-31.5)
[2018-09-09 11:03] LABS: ALBUMIN 3.1 gm/dl (3.1-4.5); ALKALINE PHOSPHATASE 142 U/L (45-117); BUN 8 mg/dl (7-24); CHLORIDE 105 mmol/L (98-107); CREATININE 1.11 mg/dL (0.70-1.30); SGOT/AST 171 IU/L (3-35); SGPT/ALT 93 U/L (12-78); SODIUM 140 mmol/L (136-145); TOTAL PROTEIN 6.5 gm/dL (6.4-8.2); TROPONIN I 0.023 ng/ml (<0.045)
[2018-09-09 15:07] LABS: BILIRUBIN NEGATIVE (NEGATIVE); BLOOD TRACE-LYSED (NEGATIVE); CLARITY CLEAR (CLEAR); COLOR YELLOW (YELLOW); GLUCOSE 1+ (NEGATIVE); KETONE TRACE (NEGATIVE); LEUKO ESTERASE NEGATIVE (NEGATIVE); NITRITE NEGATIVE (NEGATIVE); PH 6.5 (5.0-9.0); SPECIFIC GRAVITY 1.015 (1.005-1.030); UROBILINOGEN 0.2 E.U./dl (0.2-1.0)
[2018-09-09 15:35] LABS: BACTERIA 1+; EPITHELIAL CELLS 0-2
[2018-09-10] VITALS: BP 133/56
[2018-09-10 06:44] LABS: ALBUMIN 2.7 gm/dl (3.1-4.5); ALKALINE PHOSPHATASE 111 U/L (45-117); BUN 6 mg/dl (7-24); CHLORIDE 102 mmol/L (98-107); CREATININE 0.96 mg/dL (0.70-1.30); PHOSPHOROUS 1.9 mg/dL (2.5-4.9); POTASSIUM 3.1 mmol/L (3.5-5.1); SGOT/AST 118 IU/L (3-35); SGPT/ALT 71 U/L (12-78); SODIUM 138 mmol/L (136-145); TOTAL PROTEIN 5.6 gm/dL (6.4-8.2)
[2018-09-10 07:06] LABS: BASO % 0.7 % (0.0-1.0); EOS # 0.1 10*3/uL (0.0-0.4); EOS % 1.2 % (1.0-4.0); HEMATOCRIT 34.5 % (42.0-52.0); HEMOGLOBIN 11.3 g/dl (14.0-18.0); LYMPH # 0.6 10*3/uL (1.3-4.4); LYMPH % 9.7 % (27.0-41.0); MEAN CORPUSCULAR HGB 33.9 pg (27.0-31.0); MEAN CORPUSCULAR HGB CONC 32.8 g/dl (33.0-37.0); MEAN PLATELET VOLUME 10.3 fl (9.6-12.3); MONO # 0.4 10*3/uL (0.1-1.0); MONO % 6.2 % (3.0-9.0); NEUT # 4.7 10*3/uL (2.3-7.9); NEUT % 81.9 % (47.0-73.0); PLATELET COUNT AUTOMATED 119 10*3/uL (130-400); RED BLOOD COUNT 3.33 10*6/uL (4.50-5.90); WHITE BLOOD COUNT 5.8 10*3/uL (4.8-10.8)
[2018-09-10 07:09] LABS: MEAN CELL VOLUME 103.6 fl (80.0-94.0)
[2018-09-10 08:00] VITALS: BP 152/90
[2018-09-10 12:00] VITALS: BP 136/75
[2018-09-10 16:00] VITALS: BP 156/95
[2018-09-10 20:00] VITALS: BP 140/80
[2018-09-11] VITALS: BP 148/88
[2018-09-11 04:00] VITALS: BP 140/80
[2018-09-11 05:53] LABS: BASO % 0.4 % (0.0-1.0); EOS # 0.1 10*3/uL (0.0-0.4); EOS % 0.7 % (1.0-4.0); HEMATOCRIT 32.8 % (42.0-52.0); LYMPH # 0.7 10*3/uL (1.3-4.4); LYMPH % 9.1 % (27.0-41.0); MEAN CELL VOLUME 102.5 fl (80.0-94.0); MEAN CORPUSCULAR HGB 34.4 pg (27.0-31.0); MEAN CORPUSCULAR HGB CONC 33.5 g/dl (33.0-37.0); MEAN PLATELET VOLUME 10.7 fl (9.6-12.3); MONO # 0.5 10*3/uL (0.1-1.0); MONO % 6.8 % (3.0-9.0); NEUT % 82.5 % (47.0-73.0); PLATELET COUNT AUTOMATED 110 10*3/uL (130-400); RED CELL DISTRI WIDTH 13.7 % (0-14.5); WHITE BLOOD COUNT 7.3 10*3/uL (4.8-10.8)
[2018-09-11 05:56] LABS: BUN 8 mg/dl (7-24); CHLORIDE 104 mmol/L (98-107); CREATININE 1.04 mg/dL (0.70-1.30); POTASSIUM 3.1 mmol/L (3.5-5.1); SODIUM 138 mmol/L (136-145)
[2018-09-11 05:57] LABS: PHOSPHOROUS 2.1 mg/dL (2.5-4.9)
[2018-09-11 08:00] VITALS: BP 142/85
[2018-09-11 12:00] VITALS: BP 147/89
[2018-09-11 16:00] VITALS: BP 124/71
[2018-09-11 20:00] VITALS: BP 124/78
[2018-09-12] VITALS: BP 124/79
[2018-09-12 04:00] VITALS: BP 124/76
[2018-09-12 06:21] LABS: BASO % 0.5 % (0.0-1.0); EOS # 0.2 10*3/uL (0.0-0.4); EOS % 2.6 % (1.0-4.0); HEMOGLOBIN 10.8 g/dl (14.0-18.0); LYMPH % 15.5 % (27.0-41.0); MEAN CELL VOLUME 104.4 fl (80.0-94.0); MEAN CORPUSCULAR HGB 34.2 pg (27.0-31.0); MEAN CORPUSCULAR HGB CONC 32.7 g/dl (33.0-37.0); MEAN PLATELET VOLUME 10.1 fl (9.6-12.3); MONO # 0.4 10*3/uL (0.1-1.0); MONO % 6.7 % (3.0-9.0); NEUT # 4.9 10*3/uL (2.3-7.9); NEUT % 73.6 % (47.0-73.0); NUCLEATED RED BLOOD CELL 0.5 % (0.0-0.0); PLATELET COUNT AUTOMATED 102 10*3/uL (130-400); RED BLOOD COUNT 3.16 10*6/uL (4.50-5.90); WHITE BLOOD COUNT 6.6 10*3/uL (4.8-10.8)
[2018-09-12 06:24] LABS: BUN 10 mg/dl (7-24); CHLORIDE 103 mmol/L (98-107); CREATININE 0.99 mg/dL (0.70-1.30); PHOSPHOROUS 2.3 mg/dL (2.5-4.9); POTASSIUM 2.7 mmol/L (3.5-5.1); SODIUM 137 mmol/L (136-145)
[2018-09-12 08:00] VITALS: BP 121/65
[2018-09-12 12:00] VITALS: BP 124/82
[2018-09-12 16:00] VITALS: BP 95/56
[2018-09-12 20:00] VITALS: BP 133/72
[2018-09-13] VITALS: BP 145/85
[2018-09-13 04:05] LABS: ADENOVIRUS Negative (Negative); INFLUENZA A Negative (Negative); INFLUENZA B Negative (Negative); METAPNEUMOVIRUS Negative (Negative); PARAINFLUENZA 1 Negative (Negative); PARAINFLUENZA 2 Negative (Negative); PARAINFLUENZA 3 Negative (Negative); RHINOVIRUS Negative (Negative); RSV A Negative (Negative); RSV B Negative (Negative)
[2018-09-13 08:00] VITALS: BP 130/84
[2018-09-13 08:05] LABS: BASO % 0.5 % (0.0-1.0); EOS # 0.3 10*3/uL (0.0-0.4); EOS % 3.8 % (1.0-4.0); LYMPH # 1.1 10*3/uL (1.3-4.4); MEAN CELL VOLUME 106.6 fl (80.0-94.0); MEAN CORPUSCULAR HGB 34.5 pg (27.0-31.0); MEAN CORPUSCULAR HGB CONC 32.4 g/dl (33.0-37.0); MEAN PLATELET VOLUME 10.3 fl (9.6-12.3); MONO # 0.6 10*3/uL (0.1-1.0); NEUT # 4.6 10*3/uL (2.3-7.9); NEUT % 69.8 % (47.0-73.0); NUCLEATED RED BLOOD CELL 0.3 % (0.0-0.0); PLATELET COUNT AUTOMATED 99 10*3/uL (130-400); RED BLOOD COUNT 3.19 10*6/uL (4.50-5.90); RED CELL DISTRI WIDTH 14.6 % (0-14.5); WHITE BLOOD COUNT 6.6 10*3/uL (4.8-10.8)
[2018-09-13 08:17] LABS: BUN 8 mg/dl (7-24); CHLORIDE 106 mmol/L (98-107); CREATININE 0.93 mg/dL (0.70-1.30); SODIUM 138 mmol/L (136-145)
[2018-09-13 08:18] LABS: POTASSIUM 3.7 mmol/L (3.5-5.1)
[2018-09-13] MEDS ORDERED: AVPAK AZITHROM250 MG PO (10:28)
[2018-09-13] MEDS ORDERED: PREDNISONE10 MG PO (10:28)
== END 2018-09-13 10:50 | disposition home or self-care (01) | DRG 871 ==
LOC: ED 10:14 → 4E 12:04 → EDHOLD 12:04 → 4E 12:16 → ICCU 09-10 18:25 → 5E 09-12 14:40 → ICCU 09-12 15:21 → 5E 09-12 18:23
PROVIDERS: Emergency Medicine; Internal Medicine; Internal Medicine Critical Care Medicine; Registered Nurse
DX: A41.9 Sepsis, unspecified organism (principal); J18.9 Pneumonia, unspecified organism; E44.0 Moderate protein-calorie malnutrition; I48.1 Persistent atrial fibrillation; F10.239 Alcohol dependence with withdrawal, unspecified; E87.2 Acidosis; J43.9 Emphysema, unspecified; E87.6 Hypokalemia; F32.9 Major depressive disorder, single episode, unspecified; E11.65 Type 2 diabetes mellitus with hyperglycemia; E55.9 Vitamin D deficiency, unspecified; I10 Essential (primary) hypertension; F17.210 Nicotine dependence, cigarettes, uncomplicated; E78.1 Pure hyperglyceridemia; R65.20 Severe sepsis without septic shock; E66.01 Morbid (severe) obesity due to excess calories; I48.2 Chronic atrial fibrillation; J20.9 Acute bronchitis, unspecified; R74.0 Nonspecific elevation of levels of transaminase and lactic acid dehydrogenase [LDH]; D53.9 Nutritional anemia, unspecified; R74.8 Abnormal levels of other serum enzymes; Z87.01 Personal history of pneumonia (recurrent); Z87.442 Personal history of urinary calculi; Z82.49 Family history of ischemic heart disease and other diseases of the circulatory system; Z79.899 Other long term (current) drug therapy

== ENCOUNTER 2019-05-20 10:32 | Inpatient (IN) | payer MEDICAID ==
[~2019-05-20] VITALS: Ht 172.7 cm; Wt 87.1 kg
[~2019-05-20 10:32] MED LIST changes: +AVPAK AZITHROM250 MG PO; +PREDNISONE10 MG PO
[2019-05-20 10:34] VITALS: BP 118/78
[2019-05-20 11:09] LABS: BASO # 0.1 10*3/uL (0.0-0.1); BASO % 1.1 % (0.0-1.0); EOS # 0.3 10*3/uL (0.0-0.4); EOS % 4.7 % (1.0-4.0); HEMATOCRIT 35.2 % (42.0-52.0); HEMOGLOBIN 12.1 g/dl (14.0-18.0); LYMPH # 2.3 10*3/uL (1.3-4.4); LYMPH % 41.2 % (27.0-41.0); MEAN CELL VOLUME 87.6 fl (80.0-94.0); MEAN CORPUSCULAR HGB 30.1 pg (27.0-31.0); MEAN CORPUSCULAR HGB CONC 34.4 g/dl (33.0-37.0); MEAN PLATELET VOLUME 9.3 fl (9.6-12.3); MONO # 0.6 10*3/uL (0.1-1.0); MONO % 10.2 % (3.0-9.0); NEUT # 2.4 10*3/uL (2.3-7.9); NEUT % 42.6 % (47.0-73.0); PLATELET COUNT AUTOMATED 254 10*3/uL (130-400); RED BLOOD COUNT 4.02 10*6/uL (4.50-5.90); RED CELL DISTRI WIDTH 15.4 % (0-14.5); WHITE BLOOD COUNT 5.6 10*3/uL (4.8-10.8)
[2019-05-20 11:24] LABS: ALBUMIN 3.7 gm/dl (3.1-4.5); CREATININE 2.69 mg/dL (0.70-1.30); POTASSIUM 2.8 mmol/L (3.5-5.1); TOTAL PROTEIN 7.1 gm/dL (6.4-8.2)
[2019-05-20 12:00] VITALS: BP 111/51
[2019-05-20 14:00] VITALS: BP 134/76
[2019-05-20 14:02] VITALS: BP 120/74
[2019-05-20] MEDS ORDERED: METFORMIN750 MG PO (14:35)
[2019-05-20] MEDS ORDERED: ASPIRIN CHEWABL81 MG PO (14:36)
[2019-05-20] MEDS ORDERED: FISH OIL PEARL1 EACH PO (14:36)
[2019-05-20 14:51] VITALS: BP 134/76
[2019-05-20] MEDS ORDERED: FISH OIL 1,2001 EAC1 PO (15:17)
[2019-05-20] MEDS ORDERED: VITAMIN D5000 UNI1 PO (15:18)
[2019-05-20] MEDS ORDERED: VISTARIL25 MG PO (15:19)
[2019-05-20] MEDS ORDERED: LOPID600 M1 PO (15:23)
[2019-05-20] MEDS ORDERED: GLIPIZIDE5 MG PO (15:24)
[2019-05-20] MEDS ORDERED: HYDROCHLOROTHIA25 M1 PO (15:25)
[2019-05-20] MEDS ORDERED: METOPROLOL25 MG PO (15:26)
[2019-05-20 17:15] LABS: BILIRUBIN NEGATIVE (NEGATIVE); BLOOD NEGATIVE (NEGATIVE); CLARITY CLEAR (CLEAR); COLOR YELLOW (YELLOW); GLUCOSE NEGATIVE (NEGATIVE); KETONE NEGATIVE (NEGATIVE); LEUKO ESTERASE NEGATIVE (NEGATIVE); NITRITE NEGATIVE (NEGATIVE); UROBILINOGEN 0.2 E.U./dl (0.2-1.0)
[2019-05-20 17:24] LABS: FINE GRANULAR CAST 0-2
[2019-05-20 17:25] LABS: BACTERIA 2+; RBC 0-2 rbc/hpf (0-2)
[2019-05-20 17:31] LABS: URINE AMPHETAMINES < 1000 (1000ng/ml); URINE BARBITURATES < 200 (200ng/ml); URINE BENZODIAZEPINES < 200 (200ng/ml); URINE CANNABINOIDS (THC) < 50 (50ng/ml); URINE COCAINE < 300 (300ng/ml); URINE METHADONE < 300 (300ng/ml); URINE OPIATES < 300 (300ng/ml)
[2019-05-20 17:32] LABS: URINE PHENCYCLIDINE < 25 (25ng/ml)
[2019-05-20 20:00] VITALS: BP 133/67
[2019-05-21] VITALS: BP 145/84
[2019-05-21 04:00] VITALS: BP 142/86
[2019-05-21 06:39] LABS: HEMATOCRIT 35.7 % (42.0-52.0); HEMOGLOBIN 11.9 g/dl (14.0-18.0); MEAN CELL VOLUME 88.4 fl (80.0-94.0); MEAN CORPUSCULAR HGB 29.5 pg (27.0-31.0); MEAN CORPUSCULAR HGB CONC 33.3 g/dl (33.0-37.0); PLATELET COUNT AUTOMATED 204 10*3/uL (130-400); RED BLOOD COUNT 4.04 10*6/uL (4.50-5.90); RED CELL DISTRI WIDTH 15.3 % (0-14.5); WHITE BLOOD COUNT 7.5 10*3/uL (4.8-10.8)
[2019-05-21 06:58] LABS: ALBUMIN 3.4 gm/dl (3.1-4.5); CREATININE 1.89 mg/dL (0.70-1.30); PHOSPHOROUS 3.5 mg/dL (2.5-4.9); TOTAL PROTEIN 6.9 gm/dL (6.4-8.2)
[2019-05-21 07:12] LABS: ACT PARTIAL THROMBO TIME 28.2 SECONDS (20.0-32.1)
[2019-05-21 07:34] LABS: PLATELET SUFFICIENCY NORMAL (NORMAL); TOTAL CELLS COUNTED 100 #CELLS
[2019-05-21 08:00] VITALS: BP 129/67
[2019-05-21 08:35] LABS: VITAMIN D, 25-HYDROXY 29.3 ng/mL (30-100)
[2019-05-21 12:00] VITALS: BP 128/65
[2019-05-21 16:00] VITALS: BP 126/74
[2019-05-21 20:00] VITALS: BP 133/81
[2019-05-22] VITALS: BP 125/70
[2019-05-22 04:00] VITALS: BP 119/79
[2019-05-22 06:52] LABS: BASO % 0.4 % (0.0-1.0); EOS # 0.1 10*3/uL (0.0-0.4); EOS % 0.5 % (1.0-4.0); HEMATOCRIT 35.5 % (42.0-52.0); HEMOGLOBIN 11.8 g/dl (14.0-18.0); LYMPH # 1.5 10*3/uL (1.3-4.4); LYMPH % 15.9 % (27.0-41.0); MEAN CELL VOLUME 89.2 fl (80.0-94.0); MEAN CORPUSCULAR HGB 29.6 pg (27.0-31.0); MEAN CORPUSCULAR HGB CONC 33.2 g/dl (33.0-37.0); MEAN PLATELET VOLUME 10.3 fl (9.6-12.3); MONO # 0.5 10*3/uL (0.1-1.0); MONO % 5.2 % (3.0-9.0); NEUT # 7.4 10*3/uL (2.3-7.9); NEUT % 77.6 % (47.0-73.0); PLATELET COUNT AUTOMATED 194 10*3/uL (130-400); RED BLOOD COUNT 3.98 10*6/uL (4.50-5.90); RED CELL DISTRI WIDTH 15.2 % (0-14.5); WHITE BLOOD COUNT 9.6 10*3/uL (4.8-10.8)
[2019-05-22 06:58] LABS: ALBUMIN 3.3 gm/dl (3.1-4.5); CHLORIDE 110 mmol/L (98-107); CREATININE 1.12 mg/dL (0.70-1.30); PHOSPHOROUS 1.8 mg/dL (2.5-4.9); POTASSIUM 3.4 mmol/L (3.5-5.1); SGOT/AST 22 IU/L (3-35); SGPT/ALT 30 U/L (12-78); SODIUM 141 mmol/L (136-145); TOTAL PROTEIN 6.4 gm/dL (6.4-8.2)
[2019-05-22 07:00] LABS: ALKALINE PHOSPHATASE 75 U/L (45-117)
[2019-05-22 07:02] LABS: BUN 31 mg/dl (7-24)
== END 2019-05-22 12:48 | disposition left against medical advice (07) | DRG 154 ==
LOC: ED 10:32 → EDHOLD 13:46 → 5E 13:46
PROVIDERS: Internal Medicine; Physician Assistant; ADMIT Internal Medicine
DX: H92.01 Otalgia, right ear (principal); N17.0 Acute kidney failure with tubular necrosis; F10.239 Alcohol dependence with withdrawal, unspecified; E87.6 Hypokalemia; E11.65 Type 2 diabetes mellitus with hyperglycemia; E87.8 Other disorders of electrolyte and fluid balance, not elsewhere classified; I10 Essential (primary) hypertension; F10.229 Alcohol dependence with intoxication, unspecified; Z53.21 Procedure and treatment not carried out due to patient leaving prior to being seen by health care provider; E78.5 Hyperlipidemia, unspecified; E66.9 Obesity, unspecified; F32.9 Major depressive disorder, single episode, unspecified; F41.1 Generalized anxiety disorder; D64.9 Anemia, unspecified; E78.1 Pure hyperglyceridemia; I48.2 Chronic atrial fibrillation; K76.0 Fatty (change of) liver, not elsewhere classified; Z82.49 Family history of ischemic heart disease and other diseases of the circulatory system; Z79.899 Other long term (current) drug therapy; Z79.82 Long term (current) use of aspirin; Z79.84 Long term (current) use of oral hypoglycemic drugs; Z68.29 Body mass index [BMI] 29.0-29.9, adult

== ENCOUNTER 2019-10-19 21:29 | Inpatient (IN) | payer MEDICAID ==
[~2019-10-19] VITALS: Ht 172.7 cm; Wt 87.2 kg
[~2019-10-19 21:29] MED LIST changes: +ASPIRIN CHEWABL81 MG PO; +FISH OIL 1,2001 EAC1 PO; +FISH OIL PEARL1 EACH PO; +GLIPIZIDE5 MG PO; +HYDROCHLOROTHIA25 M1 PO; +METFORMIN750 MG PO; +METOPROLOL25 MG PO; +VITAMIN D5000 UNI1 PO
[2019-10-19 21:31] VITALS: BP 134/64
[2019-10-19 22:05] LABS: BASO # 0.1 10*3/uL (0.0-0.1); EOS % 0.3 % (1.0-4.0); HEMATOCRIT 37.6 % (42.0-52.0); HEMOGLOBIN 12.5 g/dl (14.0-18.0); LYMPH # 1.2 10*3/uL (1.3-4.4); LYMPH % 15.6 % (27.0-41.0); MEAN CELL VOLUME 98.9 fl (80.0-94.0); MEAN CORPUSCULAR HGB 32.9 pg (27.0-31.0); MEAN CORPUSCULAR HGB CONC 33.2 g/dl (33.0-37.0); MEAN PLATELET VOLUME 9.5 fl (9.6-12.3); MONO # 0.5 10*3/uL (0.1-1.0); MONO % 6.9 % (3.0-9.0); NEUT # 5.6 10*3/uL (2.3-7.9); NEUT % 75.9 % (47.0-73.0); PLATELET COUNT AUTOMATED 242 10*3/uL (130-400); RED CELL DISTRI WIDTH 12.8 % (0-14.5); WHITE BLOOD COUNT 7.4 10*3/uL (4.8-10.8)
[2019-10-19 22:36] LABS: ALBUMIN 4.1 gm/dl (3.1-4.5); ALKALINE PHOSPHATASE 99 U/L (45-117); BUN 17 mg/dl (7-24); CHLORIDE 102 mmol/L (98-107); CREATININE 1.29 mg/dL (0.70-1.30); POTASSIUM 3.3 mmol/L (3.5-5.1); SGOT/AST 230 IU/L (3-35); SGPT/ALT 109 U/L (12-78); SODIUM 136 mmol/L (136-145); TOTAL PROTEIN 7.7 gm/dL (6.4-8.2)
[2019-10-19 22:37] LABS: TROPONIN I < 0.015 ng/ml (<0.045)
--- NOTE | 2019-10-19 22:38 | NUR ---
NOTIFICATION FROM LAB OF A LACTIC ACID OF 6.6 MD MADE AWARE. NEVIN SCHMITT RN.
[2019-10-19 22:55] LABS: ACETAMINOPHEN (TYLENOL) < 2.0 ug/ml (10-30)
[2019-10-20] VITALS: BP 154/80
--- NOTE | 2019-10-20 | NUR ---
A 54, admitted to ICCU, under the services of HARRIET Randolph DO with a diagnosis of ETOH WITHDRAWL. Chief complaint is TREMORS, NAUSEA, ETOH ABUSE. Patient arrived via bed from ER. Monitor applied. Initial assessment completed. Vital signs taken and recorded. HARRIET RANDOLPH DO notified of admission to the unit. Orders received. See assessment for past medical history, medications and allergies. Patient and/or family oriented to unit. [facility] ICCU visitation policy reviewed. Clothing/patient valuable form completed. JOSE VALLE
--- NOTE | 2019-10-20 00:20 | NUR ---
PATIENT MEDICATED WITH PRN MEDS TO HELP WITH WITHDRAWL SYMPTOMS. PATIENT DIAPHORETIC, NOTICIBLE TREMORS IN UPPER EXT. COMPLAINTS OF STOMACH CRAMPS AND NAUSEA. BENTYL, ROBAXIN, ZOFRAN, TRAZADONE GIVEN. WILL MONTIOR AND REASSESS.
--- NOTE | 2019-10-20 01:52 | NUR ---
PATIENT UNABLE TO GIVE UPDATED MED REQ. NEEDS VERIFIED WITH PHARMACY.
[2019-10-20 03:42] LABS: BASO % 0.6 % (0.0-1.0); EOS % 0.4 % (1.0-4.0); HEMATOCRIT 32.3 % (42.0-52.0); HEMOGLOBIN 10.6 g/dl (14.0-18.0); LYMPH # 1.4 10*3/uL (1.3-4.4); LYMPH % 20.5 % (27.0-41.0); MEAN CELL VOLUME 100.6 fl (80.0-94.0); MEAN CORPUSCULAR HGB CONC 32.8 g/dl (33.0-37.0); MONO # 0.5 10*3/uL (0.1-1.0); MONO % 6.9 % (3.0-9.0); NEUT % 71.5 % (47.0-73.0); RED BLOOD COUNT 3.21 10*6/uL (4.50-5.90); RED CELL DISTRI WIDTH 12.8 % (0-14.5)
[2019-10-20 03:46] LABS: PLATELET COUNT AUTOMATED 142 10*3/uL (130-400)
[2019-10-20 03:58] LABS: ALBUMIN 3.3 gm/dl (3.1-4.5); ALKALINE PHOSPHATASE 81 U/L (45-117); BUN 14 mg/dl (7-24); CHLORIDE 107 mmol/L (98-107); POTASSIUM 3.5 mmol/L (3.5-5.1); SGOT/AST 170 IU/L (3-35); SGPT/ALT 85 U/L (12-78); SODIUM 138 mmol/L (136-145); TOTAL PROTEIN 6.2 gm/dL (6.4-8.2)
[2019-10-20 04:00] VITALS: BP 123/72
[2019-10-20 08:00] VITALS: BP 127/80
[2019-10-20] MEDS ORDERED: JANUVIA100 MG PO (09:59)
[2019-10-20 11:30] LABS: BILIRUBIN 1+ (NEGATIVE); BLOOD TRACE-INTACT (NEGATIVE); CLARITY SL CLOUDY (CLEAR); COLOR YELLOW (YELLOW); GLUCOSE NEGATIVE (NEGATIVE); KETONE 1+ (NEGATIVE); LEUKO ESTERASE NEGATIVE (NEGATIVE); NITRITE NEGATIVE (NEGATIVE); PH 6.5 (5.0-9.0); SPECIFIC GRAVITY 1.025 (1.005-1.030)
[2019-10-20 11:37] LABS: BACTERIA 1+; RBC 0-2 rbc/hpf (0-2); URINE AMPHETAMINES < 1000 (1000ng/ml); URINE BARBITURATES < 200 (200ng/ml); URINE BENZODIAZEPINES < 200 (200ng/ml); URINE CANNABINOIDS (THC) < 50 (50ng/ml); URINE COCAINE < 300 (300ng/ml); URINE METHADONE < 300 (300ng/ml); URINE OPIATES < 300 (300ng/ml)
[2019-10-20 11:38] LABS: MUCOUS 1+
[2019-10-20 11:39] LABS: URINE PHENCYCLIDINE < 25 (25ng/ml)
[2019-10-20 12:00] VITALS: BP 126/99
--- NOTE | 2019-10-20 13:17 | NUR ---
Archivist Economic History in to talk to patient. Patient states lives at HOME with DAUGHTER. There are BASEMENT steps in the home. Physician: MARK PAYNE Pharmacy: [facility] health services: NONE Patient's level of ADLs: INDEPENDENT Patient has working utilities: YES DME: NONE Follow-up physician's appointment after d/c: WILL BE MADE BY HOSPITALIST NURSE DIRECTOR ON DISCHARGE Does patient want to access PORTAL?: NO Discharge plan PT LIVES AT HOME WITH HIS DAUGHTER AND IS INDEPENDENT IN HIS CARE. DENIES HE WILL HAVE ANY NEEDS ON DISCHARGE. PLANS TO RETURN HOME WITH DAUGHTER WILL CONTINUE TO FOLLOW. STATES HE WILL HAVE A RIDE HOME. THIERRY VARGAS
[2019-10-20 16:00] VITALS: BP 120/91
[2019-10-20 20:00] VITALS: BP 120/69
--- NOTE | 2019-10-20 20:00 | NUR ---
FAMILY MEMBER VISITS.
--- NOTE | 2019-10-20 22:16 | NUR ---
MEDICATIONS GIVEN AT 2150; TRAZADONE FOR SLEEP, BENTYL FOR STOMACH CRAMPING, ROBAXIN FOR MUSCLE CRAMPING, AND VISTARIL FOR ANXIETY ALL APPEAR TO BE EFFECTIVE....PT RESTING ON HIS LT SIDE, EYES CLOSED, BODY RELAXED, RESPIRATIONS EVEN & UNLABORED.
[2019-10-21] VITALS (10 sets, daily range): BP systolic 116–129; BP diastolic 63–76
--- NOTE | 2019-10-21 00:55 | NUR ---
PT TREMULOUS, RESTLESS, TOSSING & TURNING, STATING "I DON'T KNOW WHY I CAN'T SLEEP TONIGHT. CAN YOU GIVE ME SOMETHING?" AFIB RVR 110'S. PT IS ORIENTED AND COOPERATIVE. IV ATIVAN GIVEN ORDERED. IN VIEW OF ICU STAFF.
--- NOTE | 2019-10-21 02:07 | NUR ---
PT HAD BEEN GETTING OOB TO [facility]. ASSISTED HIM HE IS NOW UNSTEADY S/P IV ATIVAN. HE, AGAIN, MOVED HIS BOWELS AND VOIDED. REMAINS WIDE AWAKE, DRINKING LOTS OF PO FLUIDS, TOSSING AND TURNING. BED EXIT ALARM ON AND IN LINE OF SIGHT. PT REMAINS TREMULOUS.
--- NOTE | 2019-10-21 03:50 | NUR ---
PT REMAINS AWAKE, RESTLESS, ++ TREMORS CONTINUE, STARTING TO HALLUCINATE EVIDENCED BY SAYING "DO YOU HEAR THAT RAT IN THE CORNER? I CAN HEAR IT SCRATCHING, I KNOW WHAT THAT SOUND IS...I'LL BRING MY CAT AND WE'LL TAKE CARE OF IT." BUT THEN PT ALSO CAN TELL ME THAT HE "IS IN ICU IN [facility]." ADDITIONAL TRAZADONE, ROBAXIN, AND VISTARIL GIVEN FOR INSOMNIA, MUSCLE CRAMPS AND ANXIETY.
[2019-10-21 04:48] LABS: BASO % 0.4 % (0.0-1.0); EOS # 0.1 10*3/uL (0.0-0.4); EOS % 1.9 % (1.0-4.0); HEMATOCRIT 29.1 % (42.0-52.0); HEMOGLOBIN 9.5 g/dl (14.0-18.0); LYMPH # 1.1 10*3/uL (1.3-4.4); LYMPH % 19.5 % (27.0-41.0); MEAN CORPUSCULAR HGB 32.6 pg (27.0-31.0); MEAN CORPUSCULAR HGB CONC 32.6 g/dl (33.0-37.0); MEAN PLATELET VOLUME 10.6 fl (9.6-12.3); MONO # 0.4 10*3/uL (0.1-1.0); MONO % 7.2 % (3.0-9.0); NEUT % 70.6 % (47.0-73.0); PLATELET COUNT AUTOMATED 103 10*3/uL (130-400); RED BLOOD COUNT 2.91 10*6/uL (4.50-5.90); RED CELL DISTRI WIDTH 12.7 % (0-14.5); WHITE BLOOD COUNT 5.7 10*3/uL (4.8-10.8)
[2019-10-21 05:01] LABS: BUN 14 mg/dl (7-24); CHLORIDE 108 mmol/L (98-107); CREATININE 1.14 mg/dL (0.70-1.30); POTASSIUM 3.6 mmol/L (3.5-5.1); SODIUM 136 mmol/L (136-145)
--- NOTE | 2019-10-21 08:30 | NUR ---
"HEY, THERES FOOD ON THE TABLE FOR THE CAT" PT REORIENTED THAT HE IS IN THE HOSPITAL
--- NOTE | 2019-10-21 09:30 | NUR ---
OOB, PULLED OFF MONITOR, "HE SAID I CAN GO HOME NOW", PT REORIENTED AND PLACED BACK IN BED
--- NOTE | 2019-10-21 10:43 | NUR ---
REMIANS DISORIENTED, CLIMBING OOB, WORRIED ABOUT HIS CAT, REDIRECTS EASILY AT PRESENT , PRN IV ATIVAN GIVEN
--- NOTE | 2019-10-21 10:43 | NUR ---
1 MG IV ATIVAN
--- NOTE | 2019-10-21 12:25 | NUR ---
2 MG IV ATIVAN
--- NOTE | 2019-10-21 12:26 | NUR ---
DR DANIEL CALLED, PT CONTINUES TO TRY TO GET OOB, CALLING FOR HIS "NELSON" SISTER LIZ CALLED "I CANT COME SIT WITH HIM" BUT SHE WILL TRY TO BRING HIS DTR IN, PT REDIRECTS, IS NOT COMBATIVE, BUT HAS BECOME INCREASINGLY CONFUSED/DISORIENTED AND IF AT A HIGHER RISK OF FALLING
--- NOTE | 2019-10-21 12:43 | NUR ---
1 MG IV ATIVAN
--- NOTE | 2019-10-21 13:02 | NUR ---
2 MG IV ATIVAN
--- NOTE | 2019-10-21 13:17 | NUR ---
2 MG IV ATIVAN
--- NOTE | 2019-10-21 13:41 | NUR ---
2 MG IV ATIVAN, PT COMBATIVE AND RESTRAINED
--- NOTE | 2019-10-21 13:45 | NUR ---
DR DANIEL UPDATED, DTR AT BEDSIDE
--- NOTE | 2019-10-21 13:49 | NUR ---
DR LEWIS TO [facility]
--- NOTE | 2019-10-21 13:55 | NUR ---
100 MG IV PHENOBARB
--- NOTE | 2019-10-21 14:22 | NUR ---
PT SOMEWHAT CALMER AFTER IV PHENOBARB, STILL RESTRAINED AND PULLING TO BREAK FREE, DTR AT BEDSIDE AND TEARFUL AT SOME OF THE THINGS PT IS SAYING
--- NOTE | 2019-10-21 14:31 | NUR ---
2 MG IV ATIVAN PER DR LEWIS
--- NOTE | 2019-10-21 14:34 | NUR ---
2 MG IV ATIVAN
--- NOTE | 2019-10-21 15:01 | NUR ---
2 MG IV ATIVAN
--- NOTE | 2019-10-21 15:02 | NUR ---
DR LEWIS BACK TO CHECK ON PT
--- NOTE | 2019-10-21 15:40 | NUR ---
ALL CURRENT SEDATION HAS BEEN INEFFECTIVE FOR CONTROL OF DT'S PT REMAINS AGITATED/COMBATIVE/PLANS MADE FOR ELECTIVE INTUBATION TO PROTECT PTS AIRWAY AND ALLOW FOR GREATEER SEDATION USE FOR CONTROL OF DT'S, PT DTR HAS ALREADY BEEN IN AND IS AGREEABLE
--- NOTE | 2019-10-21 16:25 | NUR ---
intubated with 7.[address] Chivo cullen glidoscope, sedated with etomidate/succ/diprovan, hernandez inserted per policy, ogt placed, pt started on chevyvan drip , Dr Schneider consulted
--- NOTE | 2019-10-21 16:30 | NUR ---
DR CANO NOTIFIED OF CONSULT
[2019-10-21 17:01] LABS: BILIRUBIN NEGATIVE (NEGATIVE); BLOOD TRACE-INTACT (NEGATIVE); CLARITY CLEAR (CLEAR); COLOR YELLOW (YELLOW); GLUCOSE 3+ (NEGATIVE); KETONE NEGATIVE (NEGATIVE); LEUKO ESTERASE NEGATIVE (NEGATIVE); NITRITE NEGATIVE (NEGATIVE)
[2019-10-21 17:20] LABS: BACTERIA 2+
[2019-10-21 17:21] LABS: MUCOUS TRACE
[2019-10-21 17:34] LABS: BASO % 0.2 % (0.0-1.0); EOS # 0.1 10*3/uL (0.0-0.4); EOS % 1.3 % (1.0-4.0); HEMATOCRIT 27.4 % (42.0-52.0); HEMOGLOBIN 9.1 g/dl (14.0-18.0); LYMPH # 0.5 10*3/uL (1.3-4.4); LYMPH % 9.5 % (27.0-41.0); MEAN CELL VOLUME 99.3 fl (80.0-94.0); MEAN CORPUSCULAR HGB CONC 33.2 g/dl (33.0-37.0); MONO # 0.4 10*3/uL (0.1-1.0); NEUT # 4.3 10*3/uL (2.3-7.9); NEUT % 81.4 % (47.0-73.0); PLATELET COUNT AUTOMATED 83 10*3/uL (130-400); RED BLOOD COUNT 2.76 10*6/uL (4.50-5.90); RED CELL DISTRI WIDTH 12.9 % (0-14.5); WHITE BLOOD COUNT 5.3 10*3/uL (4.8-10.8)
[2019-10-21 17:51] LABS: ALBUMIN 2.8 gm/dl (3.1-4.5); ALKALINE PHOSPHATASE 82 U/L (45-117); BUN 10 mg/dl (7-24); CHLORIDE 108 mmol/L (98-107); CREATININE 1.22 mg/dL (0.70-1.30); POTASSIUM 3.5 mmol/L (3.5-5.1); SGOT/AST 251 IU/L (3-35); SGPT/ALT 107 U/L (12-78); SODIUM 137 mmol/L (136-145); TOTAL PROTEIN 5.7 gm/dL (6.4-8.2)
--- NOTE | 2019-10-21 18:21 | NUR ---
PER PHARMACY, ALL CURRENT PO MEDS ARE CRUSHABLE TO BE GIVEN THRU THE OGT
[2019-10-21 18:57] LABS: ARTERIAL BLOOD GAS PH 7.375 (7.35-7.45)
[2019-10-21 18:58] LABS: ABG BASE EXCESS -5.7 mmol/L (-2.0-2.0)
--- NOTE | 2019-10-21 19:54 | NUR ---
DR CANO WAS NOTIFIED OF ABG RESULTS. ALSO THAT OGT TIP NOT SEEN ON XRAY AND NEW ONE ORDERED. I INFORMED HIM THAT PRIOR RN STATES PLACEMENT EASILY HEARD AND HE STATES THAT I CAN GIVE MEDICATIONS THROUGH OG LONG WE CAN VERIFY PLACEMENT THAT WAY. I ALSO VERIFIED PLACEMENT WITH AIR BOLUS/AUSCULTATION OVER EPIGASTRIC AREA. PT STILL SOMEWHAT RESTLESS POST VERSED ADMINISTRATION AND PROPOFOL AT 50MC.
--- NOTE | 2019-10-21 20:12 | NUR ---
CXR RESULTS SHOW PROPER PLACEMENT OF BOTH ETT AND OGT. I CALLED DIETARY TO BRING TUBE FEEDINGS TO FLOOR ORDERED.
--- NOTE | 2019-10-21 23:40 | NUR ---
COMPLETE BATH AND BED LINEN CHANGE DONE.
[2019-10-22] VITALS (11 sets, daily range): BP systolic 116–129; BP diastolic 35–72
--- NOTE | 2019-10-22 03:37 | NUR ---
VERSED AT 0245 WAS EFFECTIVE FOR AGITATION, THRASHING HEAD SIDE TO SIDE, AND COUGHING AGAINST VENT.
[2019-10-22 05:01] LABS: BASO % 0.3 % (0.0-1.0); EOS # 0.1 10*3/uL (0.0-0.4); EOS % 1.9 % (1.0-4.0); HEMATOCRIT 28.7 % (42.0-52.0); HEMOGLOBIN 9.5 g/dl (14.0-18.0); LYMPH # 1.1 10*3/uL (1.3-4.4); LYMPH % 14.7 % (27.0-41.0); MEAN CELL VOLUME 101.1 fl (80.0-94.0); MEAN CORPUSCULAR HGB 33.5 pg (27.0-31.0); MEAN CORPUSCULAR HGB CONC 33.1 g/dl (33.0-37.0); MEAN PLATELET VOLUME 10.9 fl (9.6-12.3); MONO # 0.5 10*3/uL (0.1-1.0); MONO % 6.4 % (3.0-9.0); NEUT # 5.6 10*3/uL (2.3-7.9); NEUT % 76.2 % (47.0-73.0); PLATELET COUNT AUTOMATED 89 10*3/uL (130-400); RED BLOOD COUNT 2.84 10*6/uL (4.50-5.90); RED CELL DISTRI WIDTH 12.9 % (0-14.5); WHITE BLOOD COUNT 7.4 10*3/uL (4.8-10.8)
[2019-10-22 05:18] LABS: ALBUMIN 2.8 gm/dl (3.1-4.5); ALKALINE PHOSPHATASE 87 U/L (45-117); BUN 7 mg/dl (7-24); CHLORIDE 111 mmol/L (98-107); CREATININE 1.03 mg/dL (0.70-1.30); POTASSIUM 3.4 mmol/L (3.5-5.1); SGOT/AST 188 IU/L (3-35); SGPT/ALT 103 U/L (12-78); SODIUM 139 mmol/L (136-145); TOTAL PROTEIN 5.8 gm/dL (6.4-8.2)
[2019-10-22 05:32] LABS: PHOSPHOROUS 0.5 mg/dL (2.5-4.9)
--- NOTE | 2019-10-22 05:43 | NUR ---
DR ALLEN NOTIFIED OF PHOS, K+, MAG LEVEL, AND TEMP 100.2.
--- NOTE | 2019-10-22 06:26 | NUR ---
MAG RUNS STARTED WELL POT PHOSPHATE OGT STARTED. DR ALLEN NOTIFIED THAT SHIFT DIRECTOR STILL UNABLE TO OBTAIN IV POTASSIUM PHOSPHATE UNTIL OUR PHARMACY OPENS AT 0700.
--- NOTE | 2019-10-22 06:32 | NUR ---
TYLENOL GIVEN FOR TEMP 100.2 NOT YET EFFECTIVE. NO CHANGE IN TEMPERATURE.
--- NOTE | 2019-10-22 06:38 | NUR ---
MORPHINE AND ZOFRAN GIVEN AT 0600 FOR CHRONIC RECURRING PAIN IN HIPS/BACK AND TO PREVENT NAUSEA....EFFECTIVE PER PT.
--- NOTE | 2019-10-22 06:40 | NUR ---
VERSED GIVEN FOR AGITATION, SHAKING HEAD BACK AND FORTH IN "NO" DIRECTION., MILDLY EFFECTIVE.
--- NOTE | 2019-10-22 07:17 | NUR ---
Shift chart check completed.
[2019-10-22 07:43] LABS: ARTERIAL BLOOD GAS PH 7.356 (7.35-7.45)
[2019-10-22 07:45] LABS: ABG BASE EXCESS -6.8 mmol/L (-2.0-2.0)
--- NOTE | 2019-10-22 08:00 | NUR ---
PATIENT SHAKING HEAD BACK & FORTH, PULLING AT LINES. MEDICATED WITH PRN PO ATIVAN & ROBAXIN. MULTIPLE LOOSE STOOLS DURING THE NIGHT SO IMMODIUM & BENTYL GIVEN. TEMP ELEVATED & DR DANIEL (RESIDENT) MADE AWARE..
--- NOTE | 2019-10-22 08:37 | NUR ---
VERSED GIVEN FOR CONTINUED RESTLESSNESS AND SHAKING OF HEAD BACK AND FORTH
--- NOTE | 2019-10-22 10:35 | NUR ---
ATIVAN FOR INCREASING BUT NEVER STOPPED MOVEMENT - HEAD MOVING BACK & FORTH & OCC PULLING AT RESTRAINTS..
--- NOTE | 2019-10-22 12:06 | NUR ---
VERSED GIVEN FOR INCREASING AGGITATION AND PULLING AT LINES
--- NOTE | 2019-10-22 12:40 | NUR ---
ATIVAN GIVEN RESTLESSNESS CONTINUES
[2019-10-22 16:04] LABS: BUN 6 mg/dl (7-24); CHLORIDE 111 mmol/L (98-107); CREATININE 1.15 mg/dL (0.70-1.30); POTASSIUM 3.5 mmol/L (3.5-5.1); SODIUM 139 mmol/L (136-145)
[2019-10-22 16:05] LABS: PHOSPHOROUS 1.6 mg/dL (2.5-4.9)
[2019-10-23] VITALS (57 sets, daily range): BP systolic 71–122; BP diastolic 37–74
--- NOTE | 2019-10-23 05:00 | NUR ---
PATIENT APPEARS DIAPHORETIC AND APPEARS WARM TO TOUCH UPON ASSESSMENT. TEMP OF 102.4 RECORDED.
[2019-10-23 05:11] LABS: BASO % 0.2 % (0.0-1.0); EOS # 0.1 10*3/uL (0.0-0.4); EOS % 0.8 % (1.0-4.0); HEMATOCRIT 27.3 % (42.0-52.0); HEMOGLOBIN 8.9 g/dl (14.0-18.0); LYMPH # 0.7 10*3/uL (1.3-4.4); LYMPH % 7.6 % (27.0-41.0); MEAN CELL VOLUME 101.5 fl (80.0-94.0); MEAN CORPUSCULAR HGB 33.1 pg (27.0-31.0); MEAN CORPUSCULAR HGB CONC 32.6 g/dl (33.0-37.0); MEAN PLATELET VOLUME 11.4 fl (9.6-12.3); MONO # 0.7 10*3/uL (0.1-1.0); MONO % 8.6 % (3.0-9.0); NUCLEATED RED BLOOD CELL 0.2 % (0.0-0.0); PLATELET COUNT AUTOMATED 97 10*3/uL (130-400); RED BLOOD COUNT 2.69 10*6/uL (4.50-5.90); RED CELL DISTRI WIDTH 13.2 % (0-14.5); WHITE BLOOD COUNT 8.5 10*3/uL (4.8-10.8)
[2019-10-23 05:29] LABS: ALBUMIN 2.6 gm/dl (3.1-4.5); CREATININE 1.53 mg/dL (0.70-1.30); POTASSIUM 2.9 mmol/L (3.5-5.1); TOTAL PROTEIN 5.6 gm/dL (6.4-8.2)
--- NOTE | 2019-10-23 06:00 | NUR ---
PATIENT HR ELEVATED IN THE 130'S. TEMP RECHECKED AND IN THE 103'S, PLACED ON THE COOLING BLANKET AT THIS TIME. TYLENOL GIVEN. WILL CONTINUE TO MONITOR AND REASSESS.
[2019-10-23 07:13] LABS: ARTERIAL BLOOD GAS PH 7.311 (7.35-7.45)
[2019-10-23 07:14] LABS: ABG BASE EXCESS -9.9 mmol/L (-2.0-2.0)
--- NOTE | 2019-10-23 07:26 | NUR ---
MESSAGE LEFT FOR DR CANO
--- NOTE | 2019-10-23 08:10 | NUR ---
SPOKE WITH DR CANO ABOUT LABS - ORDERS RECEIVED
--- NOTE | 2019-10-23 08:40 | NUR ---
IBUPROFEN FOR FEVER - VISTARIL & ROBAXIN FOR RESTLESSNESS... DR LEWIS HERE
--- NOTE | 2019-10-23 09:53 | NUR ---
COOLING BLANKET ON TOP OF PATIENT, TEMP STARTING TO COME DOWN TO 102.5, HR DOWN TO 113, RESP RATE NOW 33
--- NOTE | 2019-10-23 11:17 | NUR ---
CONSENT FROM DAUGHTER ANGELIKA FOR MULTILUMEN CATHETER - CT COMPLETED PER ORDERS.
--- NOTE | 2019-10-23 12:15 | NUR ---
LEVOPHED STARTED VIA PERIPHERAL LINE AT 6mcg/min..MLC BEING PLACED AT BEDSIDE
--- NOTE | 2019-10-23 12:57 | NUR ---
VITAL SIGNS CONTINUE TO IMPROVE, COOLING BLANKET TURNED OFF PATIENT AFEBRILE AT 99 RECTALLY.. HR LOW 100'S LEVOPHED DRIP INCREASED TO 10mcg/min
[2019-10-23 13:16] LABS: CREATININE 2.11 mg/dL (0.70-1.30)
[2019-10-23 13:17] LABS: PHOSPHOROUS 2.6 mg/dL (2.5-4.9)
[2019-10-23 13:18] LABS: POTASSIUM 3.6 mmol/L (3.5-5.1)
--- NOTE | 2019-10-23 18:01 | NUR ---
EARLIER THE PATIENTS' DAUGHTER TOOM ALL BELONGINGS INCLUDING DRIVERS LICENSE, MONEY & CARD EXCEPT GLASSES (SEE CLOTHING LIST) LEVOPHED AT 10mcg/min.. DIPRIVAN REMAINS AT 50mcg..MUNIZ PATENT FOR TACHO URINE.
--- NOTE | 2019-10-23 18:46 | NUR ---
SUCTIONED FOR LARGE AMOUNT OF THICK YELLOW SPUTUM. OCC PERCUSSION VIA BED
--- NOTE | 2019-10-23 18:49 | NUR ---
PATIENT BLOOD PRESSURE AGAIN DROPPING DOWN LOW AFTER TUENED TO LEFT SIDE >15 MIN
--- NOTE | 2019-10-23 19:45 | NUR ---
24 HR chart check completed.
--- NOTE | 2019-10-23 20:00 | NUR ---
PT RESTING ON BED. VENTILATOR SETTINGS CORRECT PER MD ORDERS. ET CUFF PATENT. OG TUBE PLACEMENT AND RESIDUAL CHECKED. IV SITES PATENT WTIH BLOOD RETURN. PT RESTING WITHOUT ANY DISTRESS AT THIS TIME. DIPROVAN INFUSION AT 26.1 ML/HR OR 50 MCG, LEVOPHED INFUSION CONTINUES AT 13 MCG OR 97.5ML/HR. PULMOCARE AT 20ML/HR. MOUTH CARE PROVIDED. SUCTIONING COMPLETED. VITAL SIGNS STABLE ONGOING RN MONITORING.
--- NOTE | 2019-10-23 22:24 | NUR ---
PT RESTING IN BED WITH EASY RESPIRATIONS. THICK/THIN YELLOW SPUTUM SUCTIONED. NO DISTRESS NOTED. TUBE FEEDING INFUSION WITHOUT DIFFICULTY. LEVEPHED, DIPROVAN INFUSIONS CONTINUE PER ORDERS AND TITRATION. TYLENOL GIVEN FOR TEMPERATURE 100.2.
[2019-10-24] VITALS (94 sets, daily range): BP systolic 84–137; BP diastolic 44–79
--- NOTE | 2019-10-24 01:54 | NUR ---
PT. GIVEN MOTRIN FOR TEMP OF 101.3 ORDERED, WILL CONTINUE TO MONITOR. RYLIE PITTMAN RN
[2019-10-24 04:45] LABS: HEMATOCRIT 29.5 % (42.0-52.0); MEAN CELL VOLUME 101.4 fl (80.0-94.0); RED BLOOD COUNT 2.91 10*6/uL (4.50-5.90); RED CELL DISTRI WIDTH 13.8 % (0-14.5)
--- NOTE | 2019-10-24 04:53 | NUR ---
TYLENOL GIVEN AT 0423 ORDERED FOR TEMP OF 101.2, CURRENT TEMP 100.9. RYLIE PITTMAN RN
[2019-10-24 05:11] LABS: HEMOGLOBIN 9.8 g/dl (14.0-18.0); MEAN CORPUSCULAR HGB 33.7 pg (27.0-31.0); MEAN CORPUSCULAR HGB CONC 33.2 g/dl (33.0-37.0); MEAN PLATELET VOLUME 11.2 fl (9.6-12.3); NUCLEATED RED BLOOD CELL 0.1 10*3/uL (0.0-0.0); NUCLEATED RED BLOOD CELL 0.4 % (0.0-0.0); WHITE BLOOD COUNT 12.1 10*3/uL (4.8-10.8)
[2019-10-24 05:15] LABS: PLATELET COUNT AUTOMATED 130 10*3/uL (130-400)
[2019-10-24 05:20] LABS: TOTAL CELLS COUNTED 100 #CELLS
[2019-10-24 05:21] LABS: ALBUMIN 2.4 gm/dl (3.1-4.5); CREATININE 1.75 mg/dL (0.70-1.30); PHOSPHOROUS 1.8 mg/dL (2.5-4.9); POTASSIUM 3.3 mmol/L (3.5-5.1); TOTAL PROTEIN 6.1 gm/dL (6.4-8.2)
[2019-10-24 05:22] LABS: PLATELET SUFFICIENCY NORMAL (NORMAL)
[2019-10-24 07:01] LABS: ABG BASE EXCESS -9.1 mmol/L (-2.0-2.0); ARTERIAL BLOOD GAS PH 7.357 (7.35-7.45)
--- NOTE | 2019-10-24 11:28 | NUR ---
patient's discharge plan is undecided at this time due to being on a vent, case management/meeting planner will follow
--- NOTE | 2019-10-24 12:45 | NUR ---
VENT SETTINGS CHANGED BY DR. CANO TO AC 18 TV 600 FIO2 30% PEEP 5. TOLERATING WELL. ALARMS SET AND FUNCTIONAL.
[2019-10-24 14:05] LABS: CREATININE 1.51 mg/dL (0.70-1.30); PHOSPHOROUS 2.3 mg/dL (2.5-4.9); POTASSIUM 3.7 mmol/L (3.5-5.1)
[2019-10-24 16:28] LABS: ABG BASE EXCESS -11.4 mmol/L (-2.0-2.0); ARTERIAL BLOOD GAS PH 7.309 (7.35-7.45)
--- NOTE | 2019-10-24 16:45 | NUR ---
NOTIFIED OF ABG RESULTS. NO NEW ORDERS RECEIVED.
--- NOTE | 2019-10-24 17:50 | NUR ---
RESPIRATORY AND RN WAS CHANGING TUBE TAMER. WOUND NOTED TO LOWER MIDDLE LIP. NOTIFIED.
--- NOTE | 2019-10-24 20:00 | NUR ---
ASSESSMENTS DONE...PROPOFOL INFUSING AT 50mcg & LEVOPHED DRIP DECREASED TO 5mcg/min INFUSING VIA RIJ-MLC... IV TO LEFT ARM X2 REMOVED AND 2 NEW SITES PLACED. IV started right wrist with #22 protective cath after 2 attempts. Site prepped with Chloroprep. Sterile dressing applied. Patient tolerated procedure well. IV started left forearm with #22 protective cath after 2 attempts. Site prepped with Chloroprep. Sterile dressing applied. Patient tolerated procedure well. MUNIZ REMAINS PATENT. OGT PLACEMENT CHECKED WITH AIR BOLUS THEN IRRIGATED WITH FREE WATER. CORAZON STARK
--- NOTE | 2019-10-24 21:15 | NUR ---
LEVOPHED INCREASED TO 6mcg/min
--- NOTE | 2019-10-24 22:00 | NUR ---
LEVOPHED DECREASED TO 4mcg/min - HIBICLEANSE BATH DONE COMPLETE - ANJU/SCD ON
--- NOTE | 2019-10-24 23:15 | NUR ---
VERSED GIVEN FOR RESTLESSNESS
[2019-10-25] VITALS (87 sets, daily range): BP systolic 81–144; BP diastolic 32–87
--- NOTE | 2019-10-25 03:02 | NUR ---
BLOOD PRESSURE DROPS EVERY TIME THE PATIENT IS TURNED ONTO HIS LEFT SIDE DIPRIVAN DRIP DECREASED TO 40mcg/kg/min
--- NOTE | 2019-10-25 03:23 | NUR ---
PATIENT INCREASING IN RESTLESSNESS - RESISTING VENT - PRN VERSED GIVEN
--- NOTE | 2019-10-25 03:45 | NUR ---
RESTING BETTER SINCE VERSED GIVEN - DIPRIVAN DRIP REMAINS AT 40mcg/kg/min
--- NOTE | 2019-10-25 04:41 | NUR ---
VERSED GIVEN FOR KICKING OF LEGS & STACKED RESP
[2019-10-25 06:09] LABS: ALBUMIN 1.9 gm/dl (3.1-4.5); ALKALINE PHOSPHATASE 73 U/L (45-117); BUN 15 mg/dl (7-24); CHLORIDE 112 mmol/L (98-107); CREATININE 1.25 mg/dL (0.70-1.30); POTASSIUM 3.7 mmol/L (3.5-5.1); SGOT/AST 39 IU/L (3-35); SGPT/ALT 44 U/L (12-78); SODIUM 137 mmol/L (136-145); TOTAL PROTEIN 5.1 gm/dL (6.4-8.2)
[2019-10-25 06:10] LABS: HEMATOCRIT 24.8 % (42.0-52.0); HEMOGLOBIN 8.2 g/dl (14.0-18.0); MEAN CELL VOLUME 101.6 fl (80.0-94.0); MEAN CORPUSCULAR HGB 33.6 pg (27.0-31.0); MEAN CORPUSCULAR HGB CONC 33.1 g/dl (33.0-37.0); MEAN PLATELET VOLUME 11.1 fl (9.6-12.3); NUCLEATED RED BLOOD CELL 0.6 % (0.0-0.0); PLATELET COUNT AUTOMATED 108 10*3/uL (130-400); RED BLOOD COUNT 2.44 10*6/uL (4.50-5.90); RED CELL DISTRI WIDTH 14.2 % (0-14.5); WHITE BLOOD COUNT 6.7 10*3/uL (4.8-10.8)
--- NOTE | 2019-10-25 06:28 | NUR ---
DR MARQUEZ CALLED WITH CRITICAL (INCLUDING ALL OTHER) LAB RESULTS..
--- NOTE | 2019-10-25 06:36 | NUR ---
TYLENOL GIVEN FOR TEMP ELEVATION
--- NOTE | 2019-10-25 06:58 | NUR ---
DR MARQUEZ CALLED WITH ELEVATED TEMP - MEDS & CULTURES REVIEWED
[2019-10-25 07:17] LABS: ABG BASE EXCESS -10.2 mmol/L (-2.0-2.0); ARTERIAL BLOOD GAS PH 7.325 (7.35-7.45)
--- NOTE | 2019-10-25 07:23 | NUR ---
BP IMPROVED AFTER LEVOPHED INCREASED TO 5mcg/min
[2019-10-25 07:43] LABS: PLATELET SUFFICIENCY LOW (NORMAL); POLYCHROMASIA SLIGHT; TOTAL CELLS COUNTED 100 #CELLS
--- NOTE | 2019-10-25 08:15 | NUR ---
DR CANO CALLED ABOUT GASES. RT SUGGEST TO TURN FIO2 DOWN. PTS PO2 108. FIO2 DECREASED TO 25%. RN AWARE
--- NOTE | 2019-10-25 08:30 | NUR ---
INTUBATED AND SEDATED, LEVAPHED AT 5, OGT AND MUNIZ AND RIJ SECURE AND PATENT FREQ ORAL CARE AND HYDROGEL TO LIP WOUND, ETT REPOSITIONED TO RIGHT SIDE OF MOUTH
--- NOTE | 2019-10-25 11:50 | NUR ---
to or via bed for bronch
--- NOTE | 2019-10-25 13:00 | NUR ---
DR CANO HERE, SEDATION STOPPED, OGT REPLACED BY A NGT PER DR CANO
--- NOTE | 2019-10-25 16:41 | NUR ---
STILL DO NOT HAVE CONFIRMATION OF NGT PLACEMENT, THUS UNABLE TO GIVE PO MEDS
--- NOTE | 2019-10-25 23:00 | NUR ---
PATIENT MEDICATED WITH TYLENOL AND PLACED BACK ON COOLING BLANKET FOR A TEMP OF 101.8.
[2019-10-26] VITALS (51 sets, daily range): BP systolic 86–127; BP diastolic 29–64
--- NOTE | 2019-10-26 01:00 | NUR ---
PATIENTS TEMP DOWN TO 98.4.
[2019-10-26 04:37] LABS: BASO % 0.3 % (0.0-1.0); EOS # 0.2 10*3/uL (0.0-0.4); EOS % 2.5 % (1.0-4.0); HEMATOCRIT 25.4 % (42.0-52.0); HEMOGLOBIN 8.4 g/dl (14.0-18.0); LYMPH # 0.6 10*3/uL (1.3-4.4); LYMPH % 9.1 % (27.0-41.0); MEAN CORPUSCULAR HGB 33.7 pg (27.0-31.0); MEAN CORPUSCULAR HGB CONC 33.1 g/dl (33.0-37.0); MEAN PLATELET VOLUME 11.3 fl (9.6-12.3); MONO # 0.8 10*3/uL (0.1-1.0); MONO % 12.2 % (3.0-9.0); NEUT # 4.9 10*3/uL (2.3-7.9); NEUT % 73.5 % (47.0-73.0); NUCLEATED RED BLOOD CELL 0.3 % (0.0-0.0); PLATELET COUNT AUTOMATED 114 10*3/uL (130-400); RED BLOOD COUNT 2.49 10*6/uL (4.50-5.90); RED CELL DISTRI WIDTH 14.7 % (0-14.5); WHITE BLOOD COUNT 6.7 10*3/uL (4.8-10.8)
[2019-10-26 04:57] LABS: ALBUMIN 1.9 gm/dl (3.1-4.5); ALKALINE PHOSPHATASE 91 U/L (45-117); BUN 14 mg/dl (7-24); CHLORIDE 112 mmol/L (98-107); CREATININE 1.21 mg/dL (0.70-1.30); PHOSPHOROUS 2.4 mg/dL (2.5-4.9); POTASSIUM 3.7 mmol/L (3.5-5.1); SGOT/AST 66 IU/L (3-35); SGPT/ALT 44 U/L (12-78); SODIUM 137 mmol/L (136-145); TOTAL PROTEIN 5.7 gm/dL (6.4-8.2)
[2019-10-26 08:17] LABS: ARTERIAL BLOOD GAS PH 7.361 (7.35-7.45)
--- NOTE | 2019-10-26 08:17 | NUR ---
ARLET LYON V [id number] Please refer to the physician's history and physical for past medical history, comorbid conditions, and allergies. Diagnosis: ALCOHOL WITHDRAWAL Jak Score: 13,MODERATE RISK WOUND DESCRIPTIONS: Wound Number: 1 Location of the wound: lower lip Type of wound: medical practitioners related pressure injury ( mucosal membrane pressure injury) Size: 4.0cm x 3.5cm x <0.1cm Tunneling: none Undermining: none Sinus Tract: none Presence of Exudate: Serosanguineous Amount: Light Color: Red, brown, yellow Odor: None Periwound Skin Appearance: Normal Wound edges: approximated Pain (associated with wound): none at time of assessment How does patient state this happened? pt unable to state how this happened nurses caring for patient stated it was the endotracheal tube jaramillo Surface the patient is resting on: XPRT SKIN PREVENTION RECOMMENDATION: 1. Pressure redistribution support surface as appropriate 2. Elevate heels 3. Remove boots/TEDS every shift and reapply 4. Head of bed 30 degrees as tolerated 5. Assess nutrition and hydration 6. Manage moisture 7. Avoid the use of containment devices while in bed 8. Use absorptive products on surfaces limit layers of linens on bed 9. Turn and reposition every 1-2 hours in bed and every 1 hour in chair as tolerated 10. Weight shifts every 15 minutes while up in chair 11. Offloading with pillows or device to keep heels elevated off bed 12. Monitor skin at least every shift 13. Inspect under medical devices twice a day WOUND TREATMENT RECOMMENDATIONS: Cleanse lower lip with nss and apply hydrogel to outer part of lower lip every shift and prn for dryness.
[2019-10-26 08:18] LABS: ABG BASE EXCESS -9.4 mmol/L (-2.0-2.0)
--- NOTE | 2019-10-26 08:56 | NUR ---
Dr. De La Rosa notified of wound care recommendations.
--- NOTE | 2019-10-26 09:48 | NUR ---
sedation restarted, pt awake, cooperative, coughing alot, large amounts of yellow thick mucus suctioned from ett
--- NOTE | 2019-10-26 12:45 | NUR ---
UNABLE TO TALK TO PT AT THIS TIME FOR DISCHARGE PLANS. PT IS CURRENTLY ON A VENT.
--- NOTE | 2019-10-26 13:12 | NUR ---
PT WAS PLACED ON CPAP 07/[address] CANO. PT SPO2 98%, HR 79, RR 25. PT TOLERATING WELL AT THIS TIME.
[2019-10-26 14:26] LABS: ARTERIAL BLOOD GAS PH 7.332 (7.35-7.45)
[2019-10-26 14:43] LABS: ABG BASE EXCESS -10.2 mmol/L (-2.0-2.0)
--- NOTE | 2019-10-26 15:15 | NUR ---
DR CANO CALLED WITH ABGS ORDERS RECIEVED
--- NOTE | 2019-10-26 15:21 | NUR ---
EXTUBATED TO NC AT 3L TOLERATE WELL ALERT AND COOPERATIVE
--- NOTE | 2019-10-26 17:32 | NUR ---
TOLERATING EXTUBATION ON NC AT 2L REPOSITIONED
--- NOTE | 2019-10-26 23:55 | NUR ---
PATIENT PULL OUT NG TUBE, REFUSING TO HAVE A NEW ONE PLACED.
[2019-10-27] VITALS: BP 113/53
[2019-10-27 04:00] VITALS: BP 123/57
--- NOTE | 2019-10-27 04:16 | NUR ---
PATIENT APPROPRIATE THROUGHOUT THE NIGHT, NO SIGNS OF DISTRESS. PATIENT ALERT, DISORIENTED AT TIMES.
[2019-10-27 05:42] LABS: ALBUMIN 1.8 gm/dl (3.1-4.5); BUN 18 mg/dl (7-24); CHLORIDE 114 mmol/L (98-107); CREATININE 1.14 mg/dL (0.70-1.30); POTASSIUM 3.9 mmol/L (3.5-5.1); SGOT/AST 89 IU/L (3-35); SGPT/ALT 45 U/L (12-78); SODIUM 141 mmol/L (136-145)
[2019-10-27 05:44] LABS: ALKALINE PHOSPHATASE 99 U/L (45-117); PHOSPHOROUS 2.4 mg/dL (2.5-4.9); TOTAL PROTEIN 5.7 gm/dL (6.4-8.2)
[2019-10-27 05:57] LABS: HEMATOCRIT 25.3 % (42.0-52.0); HEMOGLOBIN 7.9 g/dl (14.0-18.0); MEAN CELL VOLUME 104.1 fl (80.0-94.0); MEAN CORPUSCULAR HGB 32.5 pg (27.0-31.0); MEAN CORPUSCULAR HGB CONC 31.2 g/dl (33.0-37.0); MEAN PLATELET VOLUME 11.4 fl (9.6-12.3); PLATELET COUNT AUTOMATED 129 10*3/uL (130-400); RED BLOOD COUNT 2.43 10*6/uL (4.50-5.90); RED CELL DISTRI WIDTH 14.4 % (0-14.5); WHITE BLOOD COUNT 7.8 10*3/uL (4.8-10.8)
[2019-10-27 06:54] LABS: BASOPHILS 2 % (0-1); TOTAL CELLS COUNTED 100 #CELLS
[2019-10-27 06:58] LABS: POLYCHROMASIA SLIGHT; ROULEAUX SLIGHT; TOXIC GRANULATION SLIGHT
[2019-10-27 07:00] LABS: PLATELET SUFFICIENCY LOW (NORMAL)
[2019-10-27 08:00] VITALS: BP 119/57
--- NOTE | 2019-10-27 10:00 | NUR ---
PHYSICAL THERAPY Pt has been on vent per staff meeting this AM just extubated today will follow Maura Valderrama PT
--- NOTE | 2019-10-27 10:00 | NUR ---
Patient on ventilator and just extubated today. OT will attempt evaluation at a later date. Bebe Cook OTR/
[2019-10-27 12:00] VITALS: BP 101/69
[2019-10-27 15:21] LABS: CPK 130 U/L (39-308); LIPASE 1051 U/L (73-393)
[2019-10-27 16:00] VITALS: BP 107/52
[2019-10-27 16:05] LABS: ACID FAST SPEC PROCESSING Concentration (.)
[2019-10-27 20:00] VITALS: BP 117/56
--- NOTE | 2019-10-27 21:05 | NUR ---
PATIENT REQUESTED SOMETHING TO HELP HIM SLEEP. TRAZADONE WAS GIVEN. WILL MONITOR AND REASSESS.
--- NOTE | 2019-10-27 22:42 | NUR ---
PATIENT RESTING WITH NO SIGNS OF DISTRESS. TRAZADONE EFFECTIVE.
--- NOTE | 2019-10-27 23:47 | NUR ---
24 HR chart check completed.
[2019-10-28] VITALS: BP 112/54
[2019-10-28 04:00] VITALS: BP 117/54
[2019-10-28 05:28] LABS: HEMATOCRIT 25.7 % (42.0-52.0); HEMOGLOBIN 8.1 g/dl (14.0-18.0); MEAN CELL VOLUME 103.6 fl (80.0-94.0); MEAN CORPUSCULAR HGB 32.7 pg (27.0-31.0); MEAN CORPUSCULAR HGB CONC 31.5 g/dl (33.0-37.0); NUCLEATED RED BLOOD CELL 0.3 % (0.0-0.0); PLATELET COUNT AUTOMATED 162 10*3/uL (130-400); RED BLOOD COUNT 2.48 10*6/uL (4.50-5.90); RED CELL DISTRI WIDTH 14.5 % (0-14.5)
[2019-10-28 05:47] LABS: ALBUMIN 1.9 gm/dl (3.1-4.5); BUN 18 mg/dl (7-24); CHLORIDE 113 mmol/L (98-107); POTASSIUM 3.9 mmol/L (3.5-5.1); SGOT/AST 65 IU/L (3-35); SGPT/ALT 43 U/L (12-78); SODIUM 140 mmol/L (136-145)
[2019-10-28 05:50] LABS: ALKALINE PHOSPHATASE 109 U/L (45-117); CREATININE 1.02 mg/dL (0.70-1.30); PHOSPHOROUS 2.7 mg/dL (2.5-4.9); TOTAL PROTEIN 5.9 gm/dL (6.4-8.2)
[2019-10-28 06:00] LABS: BASOPHILS 1 % (0-1); TOTAL CELLS COUNTED 100 #CELLS
[2019-10-28 06:01] LABS: PLATELET SUFFICIENCY NORMAL (NORMAL)
[2019-10-28 08:00] VITALS: BP 133/70
--- NOTE | 2019-10-28 09:48 | NUR ---
ARLEN DEPUTY HEAD NOTIFIED OF TRANSFER IN PROCESS.
[2019-10-28 12:00] VITALS: BP 135/79
[2019-10-28 16:00] VITALS: BP 131/67
--- NOTE | 2019-10-28 18:50 | NUR ---
AMBIKA HOLM ROUNDED AND SEEN PT. NO NEW ORDERS AT THIS TIME.
[2019-10-28 20:00] VITALS: BP 124/64
--- NOTE | 2019-10-29 02:27 | NUR ---
24 HOUR CHART CHECK COMPLETE
[2019-10-29 07:28] LABS: ALBUMIN 1.9 gm/dl (3.1-4.5); ALKALINE PHOSPHATASE 107 U/L (45-117); BUN 17 mg/dl (7-24); CHLORIDE 110 mmol/L (98-107); PHOSPHOROUS 3.6 mg/dL (2.5-4.9); POTASSIUM 4.2 mmol/L (3.5-5.1); SGOT/AST 55 IU/L (3-35); SGPT/ALT 41 U/L (12-78); SODIUM 137 mmol/L (136-145)
--- NOTE | 2019-10-29 07:30 | NUR ---
PT RESTING IN BED. VOICES NO CONCERNS AT THIS TIME. RESPS EASY AND NON LABORED. NO S/S OF DISTRESS NOTED. OXYGEN 3L VIA NASAL CANNULA INTACT. WHITE BOARD UPDATED. CALL LIGHT WITHIN REACH
[2019-10-29 08:00] VITALS: BP 110/78
[2019-10-29 08:26] LABS: HEMATOCRIT 26.5 % (42.0-52.0); HEMOGLOBIN 8.4 g/dl (14.0-18.0); MEAN CELL VOLUME 103.5 fl (80.0-94.0); MEAN CORPUSCULAR HGB 32.8 pg (27.0-31.0); MEAN CORPUSCULAR HGB CONC 31.7 g/dl (33.0-37.0); MEAN PLATELET VOLUME 11.5 fl (9.6-12.3); NUCLEATED RED BLOOD CELL 0.2 % (0.0-0.0); PLATELET COUNT AUTOMATED 210 10*3/uL (130-400); RED BLOOD COUNT 2.56 10*6/uL (4.50-5.90); RED CELL DISTRI WIDTH 14.1 % (0-14.5); WHITE BLOOD COUNT 11.4 10*3/uL (4.8-10.8)
[2019-10-29 09:09] LABS: PLATELET SUFFICIENCY NORMAL (NORMAL); TOTAL CELLS COUNTED 100 #CELLS; TOXIC GRANULATION MODERATE
--- NOTE | 2019-10-29 10:30 | NUR ---
RIGHT SIDE IJ MULTILUMEN CATHETER REMOVED PER ORDER. PT TOLERATED WELL. TIP INSPECTED AND INTACT. PRESSURE DRESSING APPLIED. CALL LIGHT WITHIN REACH.
--- NOTE | 2019-10-29 11:45 | NUR ---
DETECTIVE AND INTELLIGENCE ANALYST SPOKE WITH THE PATIENT PATIENT WOULD LIKE TO GO TO SNF. PATIENTS FIRST CHOICE IS [facility], SECOND CHOICE IS [facility]. UNABLE TO SEND REFERRAL UNTIL 10/30/2019 DUE TO FACILITY DEPARTMENT NEEDED BEING CLOSED TODAY. -ABHAY HERNANDEZ
[2019-10-29 12:00] VITALS: BP 123/67
--- NOTE | 2019-10-29 12:29 | NUR ---
Shift chart check completed.
--- NOTE | 2019-10-29 14:00 | NUR ---
PHYSICAL THERAPY PT EVAL COMPLETED 10/29/19: FULL EVAL TO FOLLOW. RECOMMEND PT WHILE HERE TO ADDRESS DECREASED FUNCTIONAL MOBILITY AND DECREASED STRENGTH AND BALANCE WELL NEED FOR STAIR TRAINING. PT EVAL IS MODERATE COMPLEXITY: [id number]. D/C RECOMMENDATIONS ARE SNF AT THIS TIME IF HE MEETS CRITERIA AND IF NOT HOME WITH HOME HEALTH. THANK YOU FOR REFERRAL SHERLYN CESAR PT
[2019-10-29 16:00] VITALS: BP 118/72
--- NOTE | 2019-10-29 16:11 | NUR ---
PT TAKEN OFF FLOOR TO XRAY VIA WHEELCHAIR
--- NOTE | 2019-10-29 19:30 | NUR ---
24 HOUR CHART CHECK COMPLETE
[2019-10-29 20:00] VITALS: BP 124/71
--- NOTE | 2019-10-29 20:00 | NUR ---
PATIENT ASSESSMENT COMPLETED WITHOUT INCIDENT, PATIENT DENIES ANY NEEDS AT THIS TIME. NC OXYGEN IN USE AT THIS TIME. IV PATENT IN BILATERAL ARMS. CALL LIGHT WITHIN REACH WILL CONTINUE TO MONITOR.
[2019-10-30] VITALS: BP 110/45
--- NOTE | 2019-10-30 06:37 | NUR ---
Upon discharge recommend patient to follow up for wound care in outpatient setting continue current wound care orders at discharging facility.
[2019-10-30 07:40] VITALS: BP 118/80
--- NOTE | 2019-10-30 07:40 | NUR ---
ASSESSMENT COMPLETED AND DOCUMENTED. PT LAYING IN BED, WITH BREATHING TREATMENT. DENIES ANY PAIN AT THIS TIME. JOSE DUNN SPCC
--- NOTE | 2019-10-30 07:45 | NUR ---
PHYSICAL THERAPY Patient seen this am 1:1 for therapy visit and was sitting up on EOB upon therapist arrival. Patient identified by name / and reports no c/o's pain at this time. Patient transfers sit to stand, CGA and ambulates CGA, no AD, 50'x 1, demonstrating slow jeanine with bouts of unsteady gait pattern, secondary to c/o of LE weakness. Patient also tolerated standing eyes open / closed with no LOB and only tolerated 2 seconds single leg stance balance on R LE, 1 second L LE prior to LOB. Patient returned to EOB sit 20'x [address] and remained with call light, tray table and cell phone. Will continue per POC as tolerated to improve safe functional mobilty / standing balance to prevent increased risk of falls. Total treatment time 23 minutes. Price Stanford, NUCLEAR MEDICINE TECHNICIAN
--- NOTE | 2019-10-30 08:07 | NUR ---
PRECERT will be required for SNF. TUTORING MANAGER faxed referral to [facility] -ABHAY Damon
--- NOTE | 2019-10-30 09:43 | NUR ---
[facility] is not in network with patients insurance. NETWORK INTERN will send referral to [place] for reveiw. -ABHAY Damon
--- NOTE | 2019-10-30 10:00 | NUR ---
REMOVED LEFT FOREARM IV THAT WAS OUTDATED FROM 10-19-19. IV IN RIGHT FOREARM STILL INTACT AND FLUSHES WITHOUT RESISTANCE. PT TOLERATED WELL. JOSE JAMESCC
--- NOTE | 2019-10-30 10:00 | NUR ---
PT RESTING IN BED. NO COMPLAINTS AT THIS TIME. JOSE DUNN SPNRCC
--- NOTE | 2019-10-30 10:18 | NUR ---
Nutritional Support Services Note: Appetite is good for meals, soft diet as ordered. Ht.5'8 Wt.192#. He refuses a supplement at this time. Labs show albumin 1.8, protein low at 5.7. Encouraged healthy eating. Increased need for calories and protein. Will send a night snack. Vandana Rodriguez Rdn Ld
--- NOTE | 2019-10-30 12:11 | NUR ---
Occupational Therapy evaluation completed on 4 with full eval to follow. Precautions include IV UE and mildly impaired activity tolerance, soft diet,low complexity level 49670. Recommend no further OT at this time and refer to home health for medication management as patient admits to not taking medications at times and is confused about recent changes in medications and PT for ms weakness with progression to outpatient therapy. Thank you. Bebe Cook OTR/L
[2019-10-30 12:30] VITALS: BP 109/67
--- NOTE | 2019-10-30 12:30 | NUR ---
PHYSICAL THERAPY Patient seen this pm 1:1 for therapy visit and was sitting up on EOB upon therapist arrival. Patient identified by name / and reports no new c/o's at this time. Patient transfers sit to stand SBA this session, ambulating without AD, CGA, 50'x 2, while demonstrating improved, smoother gait pattern secondary to wearing of eye glasses. Patient stated he normally wears glasses, but forgot he had them in dresser drawer during am treatment. Patient also demonstrated increased confidence during gait ex with no LOB while returning to EOB sit. Patient remained EOB with call light, tray table and cell phone. Will continue per POC as tolerated, total treatment time 17 minutes. Price Stanford, OPERATIONS MANAGER/COORDINATOR
--- NOTE | 2019-10-30 12:30 | NUR ---
ASSESSMENT COMPLETED AND DOCUMENTED. PT LAYING IN BED, STATES NO COMPLAINTS AT THIS TIME. JOSE DUNN SPCC
--- NOTE | 2019-10-30 12:58 | NUR ---
PT STATES HE FEELS LIKE HE IS DOING SO MUCH BETTER NOW AND JUST WANTS TO GO HOME. STATES HE WILL BE OK WITH HOME HEALTH. WILL CONTINUE TO FOLLOW.
--- NOTE | 2019-10-30 13:15 | NUR ---
PT JUST GOT LUNCH. STATES NO COMPLAINTS AT THIS TIME. REPORT GIVEN TO TRENA. [facility] D[facility]N [facility]
[2019-10-30] MEDS ORDERED: LEVAQUIN750 M1 PO (13:38)
[2019-10-30 16:00] VITALS: BP 133/74
--- NOTE | 2019-10-30 16:08 | NUR ---
REFERRAL FOR [facility] FAXED.
--- NOTE | 2019-10-30 16:52 | NUR ---
PT REFUSED DISCHARGE PHOTOS.
--- NOTE | 2019-10-30 17:40 | NUR ---
Discharge instructions reviewed with patient/family. Patient receptive and verbalizes understanding. Follow-up care arranged. Written instructions given to patient/family. JENNIFER CARRASQUILLO.
--- NOTE | 2019-10-31 15:49 | NUR ---
PHYSICAL THERAPY CO-SIGN I approve of the Physical Therapy notes written above. Maura Valderrama PT
== END 2019-10-30 17:40 | disposition home health service (06) | DRG 207 ==
LOC: ED 21:29 → EDHOLD 23:22 → ICCU 23:22 → 4E 10-28 14:29
PROVIDERS: Emergency Medicine; Hospitalist; Internal Medicine; Internal Medicine Critical Care Medicine; ADMIT Internal Medicine
DX: J69.0 Pneumonitis due to inhalation of food and vomit (principal); A41.9 Sepsis, unspecified organism; R65.21 Severe sepsis with septic shock; N17.0 Acute kidney failure with tubular necrosis; J96.01 Acute respiratory failure with hypoxia; F10.231 Alcohol dependence with withdrawal delirium; I48.21 Permanent atrial fibrillation; E44.0 Moderate protein-calorie malnutrition; D68.69 Other thrombophilia; T17.890A Other foreign object in other parts of respiratory tract causing asphyxiation, initial encounter; E87.6 Hypokalemia; R74.0 Nonspecific elevation of levels of transaminase and lactic acid dehydrogenase [LDH]; E11.42 Type 2 diabetes mellitus with diabetic polyneuropathy; I10 Essential (primary) hypertension; F41.1 Generalized anxiety disorder; F32.9 Major depressive disorder, single episode, unspecified; E11.65 Type 2 diabetes mellitus with hyperglycemia; E66.9 Obesity, unspecified; E83.42 Hypomagnesemia; E83.39 Other disorders of phosphorus metabolism; D69.6 Thrombocytopenia, unspecified; D53.9 Nutritional anemia, unspecified; J40 Bronchitis, not specified as acute or chronic; E87.8 Other disorders of electrolyte and fluid balance, not elsewhere classified; Y90.9 Presence of alcohol in blood, level not specified; X58.XXXA Exposure to other specified factors, initial encounter; Z68.29 Body mass index [BMI] 29.0-29.9, adult; Z79.01 Long term (current) use of anticoagulants; Z79.82 Long term (current) use of aspirin; Z79.899 Other long term (current) drug therapy; Y93.89 Activity, other specified; Y92.89 Other specified places as the place of occurrence of the external cause; Y99.8 Other external cause status

== ENCOUNTER 2019-11-06 15:33 | Inpatient (IN) | payer MEDICAID ==
[2019-11-06] VITALS (8 sets, daily range): BP systolic 77–118; BP diastolic 35–62
[~2019-11-06] VITALS: Ht 172.7 cm; Wt 82.1 kg
[~2019-11-06 15:33] MED LIST changes: +JANUVIA100 MG PO; +LEVAQUIN750 M1 PO
[2019-11-06 16:25] LABS: BASO # 0.1 10*3/uL (0.0-0.1); EOS # 0.2 10*3/uL (0.0-0.4); HEMATOCRIT 34.7 % (42.0-52.0); HEMOGLOBIN 11.2 g/dl (14.0-18.0); LYMPH # 1.5 10*3/uL (1.3-4.4); LYMPH % 15.9 % (27.0-41.0); MEAN CELL VOLUME 101.5 fl (80.0-94.0); MEAN CORPUSCULAR HGB 32.7 pg (27.0-31.0); MEAN CORPUSCULAR HGB CONC 32.3 g/dl (33.0-37.0); MEAN PLATELET VOLUME 10.5 fl (9.6-12.3); MONO # 0.9 10*3/uL (0.1-1.0); MONO % 9.4 % (3.0-9.0); NEUT # 6.6 10*3/uL (2.3-7.9); NEUT % 70.6 % (47.0-73.0); PLATELET COUNT AUTOMATED 665 10*3/uL (130-400); RED BLOOD COUNT 3.42 10*6/uL (4.50-5.90); RED CELL DISTRI WIDTH 13.8 % (0-14.5); WHITE BLOOD COUNT 9.4 10*3/uL (4.8-10.8)
[2019-11-06 16:34] LABS: ACT PARTIAL THROMBO TIME 25.1 SECONDS (20.0-32.1)
[2019-11-06 16:52] LABS: ALBUMIN 2.9 gm/dl (3.1-4.5); ALKALINE PHOSPHATASE 111 U/L (45-117); BUN 65 mg/dl (7-24); CHLORIDE 108 mmol/L (98-107); CREATININE 2.35 mg/dL (0.70-1.30); POTASSIUM 3.4 mmol/L (3.5-5.1); SGOT/AST 101 IU/L (3-35); SGPT/ALT 101 U/L (12-78); SODIUM 138 mmol/L (136-145); TOTAL PROTEIN 7.3 gm/dL (6.4-8.2)
[2019-11-06 16:55] LABS: TROPONIN I < 0.015 ng/ml (<0.045)
--- NOTE | 2019-11-06 18:24 | NUR ---
ATTEMPTING TO REACH RN. PHONE CALL NOT ANSWERED. WILL ATTEMPT TO CALL BACK.
--- NOTE | 2019-11-06 18:50 | NUR ---
A 54, admitted to , under the services of ILSA Galdamez DO with a diagnosis of ACUTE RENAL INSUFFICENCY, DEHYDRATION. Chief complaint is LIGHTHEADED,DIZZY,WEAKNESS.. Patient arrived via bed from ER. Monitor applied. Initial assessment completed. Vital signs taken and recorded. ILSA GALDAMEZ DO notified of admission to the unit. Orders received. See assessment for past medical history, medications and allergies. Patient and/or family oriented to unit. [address] visitation policy reviewed. Clothing/patient valuable form completed. MARTY SMITH
--- NOTE | 2019-11-06 19:06 | NUR ---
DR. CROWDER ON THE FLOOR TO SEE PT. AWARE OF BP 104/54. OK TO STAY IMC AND MONITOR BP.
[2019-11-06 19:10] LABS: BILIRUBIN NEGATIVE (NEGATIVE); BLOOD NEGATIVE (NEGATIVE); CLARITY CLEAR (CLEAR); COLOR YELLOW (YELLOW); GLUCOSE NEGATIVE (NEGATIVE); KETONE NEGATIVE (NEGATIVE); LEUKO ESTERASE NEGATIVE (NEGATIVE); NITRITE NEGATIVE (NEGATIVE); PH 5.5 (5.0-9.0); SPECIFIC GRAVITY 1.025 (1.005-1.030); UROBILINOGEN 0.2 E.U./dl (0.2-1.0)
[2019-11-06 19:20] LABS: HYALINE CAST 1
[2019-11-06 19:21] LABS: EPITHELIAL CELLS 0-2
--- NOTE | 2019-11-06 19:45 | NUR ---
CALLED DR. ALLEN TO MAKE AWARE IF THEY WANT PT TO BE IMC AN ORDER NEEDS IN THEY WANT TO MONITOR BP FOR COUPLE HOURS THEN DECIDE IF NEEDS SENT TO ICU.
--- NOTE | 2019-11-06 19:46 | NUR ---
CALLED DR. BENSON ANSWERING SERVICE MADE AWARE OF CONSULT. THEY WILL SEND THEM INFO.
--- NOTE | 2019-11-06 19:51 | NUR ---
CALLED DR. ALLEN MADE AWARE MEDICATIONS ARE UPDATED AND NEED ORDERED.
--- NOTE | 2019-11-06 20:23 | NUR ---
DR. BENSON CALLED AWARE OF CONSULT. NO NEW ORDERS, HE WILL SEE HIM TOMORROW
--- NOTE | 2019-11-06 20:25 | NUR ---
PT RESTING IN BED. TOLERATED ALBUMIN. BP-102/56 MANUALLY. NO C/O AT THIS TIME. CALL LIGHT IN REACH.
[2019-11-06 22:33] LABS: ALBUMIN 2.8 gm/dl (3.1-4.5); CREATININE 2.02 mg/dL (0.70-1.30); POTASSIUM 3.9 mmol/L (3.5-5.1); TOTAL PROTEIN 6.6 gm/dL (6.4-8.2)
--- NOTE | 2019-11-06 22:45 | NUR ---
CALLED DR. ALLEN MADE AWARE BP 118/62. OK TO CANCEL ADMISSION TO ICU AND KEEP IMC.
--- NOTE | 2019-11-06 23:00 | NUR ---
MEDICATED WITH RESTORIL PO PER PRN ORDER, SEE EMAR. PER PT REQUEST FOR INSOMNIA
[2019-11-07] VITALS: BP 101/55
--- NOTE | 2019-11-07 | NUR ---
AROUSES EASILY FOR ASSESSMENT. HEP LOCKS INTACT TO LEFT A/C & LEFT HAND. PULSE OX 97% ON ROOM AIR. BED ALARM PUT ON; INFORMED PT. PT. VERBALIZED UNDERSTANDING.
--- NOTE | 2019-11-07 02:10 | NUR ---
ASSIST OF 1 UP TO BATHROOM. VOIDED 300 CC'S OF URINE. BACK TO BED WITHOUT DIFFICULTY. IV ALBUMIN STARTED. CALL LIGHT WITHIN REACH.
--- NOTE | 2019-11-07 06:00 | NUR ---
RESTING IN BED SLEEPING. BED ALARM INTACT. CALL LIGHT WITHIN REACH.
[2019-11-07 06:56] LABS: BASO # 0.1 10*3/uL (0.0-0.1); BASO % 0.8 % (0.0-1.0); EOS # 0.4 10*3/uL (0.0-0.4); EOS % 5.2 % (1.0-4.0); HEMATOCRIT 28.1 % (42.0-52.0); HEMOGLOBIN 8.8 g/dl (14.0-18.0); LYMPH # 1.8 10*3/uL (1.3-4.4); LYMPH % 24.2 % (27.0-41.0); MEAN CELL VOLUME 101.8 fl (80.0-94.0); MEAN CORPUSCULAR HGB 31.9 pg (27.0-31.0); MEAN CORPUSCULAR HGB CONC 31.3 g/dl (33.0-37.0); MEAN PLATELET VOLUME 10.4 fl (9.6-12.3); MONO # 0.8 10*3/uL (0.1-1.0); MONO % 11.1 % (3.0-9.0); NEUT # 4.2 10*3/uL (2.3-7.9); NEUT % 57.9 % (47.0-73.0); RED BLOOD COUNT 2.76 10*6/uL (4.50-5.90); RED CELL DISTRI WIDTH 13.7 % (0-14.5); WHITE BLOOD COUNT 7.3 10*3/uL (4.8-10.8)
[2019-11-07 07:04] LABS: PLATELET COUNT AUTOMATED 464 10*3/uL (130-400)
--- NOTE | 2019-11-07 07:13 | NUR ---
ARLET LYON V [id number] Please refer to the physician's history and physical for past medical history, comorbid conditions, and allergies. Diagnosis: RENAL INSUFFICIENCY DEHYDRATION Jak Score: 18,AT RISK WOUND DESCRIPTIONS: Wound Number: 1 Location of the wound: lower lip Type of wound: medical sales associate related pressure injury ( mucosal membrane pressure injury) Size: 2.8cm x 1.2cm x <0.1cm Tunneling: none Undermining: none Sinus Tract: none Presence of Exudate: Serosanguineous Amount: Light Color: Red, brown, yellow, lemus Odor: None Periwound Skin Appearance: Normal Wound edges: approximated Pain (associated with wound): none at time of assessment How does patient state this happened? pt unable to state how this happened nurses caring for patient stated it was the endotracheal tube jaramillo Surface the patient is resting on: Proform SKIN PREVENTION RECOMMENDATION: 1. Pressure redistribution support surface as appropriate 2. Elevate heels 3. Remove boots/TEDS every shift and reapply 4. Head of bed 30 degrees as tolerated 5. Assess nutrition and hydration 6. Manage moisture 7. Avoid the use of containment devices while in bed 8. Use absorptive products on surfaces limit layers of linens on bed 9. Turn and reposition every 1-2 hours in bed and every 1 hour in chair as tolerated 10. Weight shifts every 15 minutes while up in chair 11. Offloading with pillows or device to keep heels elevated off bed 12. Monitor skin at least every shift 13. Inspect under medical devices twice a day WOUND TREATMENT RECOMMENDATIONS: Cleanse lower lip with nss and apply hydrogel to outer part of lower lip every shift and prn for dryness. Patient states he will take care of this area when he return home and doesn't want to follow up anywhere upon discharge. Magic swizzle 30ml Q 6hrs prn for pain.
[2019-11-07 07:20] LABS: POTASSIUM 3.4 mmol/L (3.5-5.1)
[2019-11-07 07:26] LABS: INTERNATIONAL NORM RATIO 1.1 (2.0-3.5)
[2019-11-07 07:30] LABS: ALBUMIN 2.8 gm/dl (3.1-4.5); CREATININE 1.64 mg/dL (0.70-1.30); PHOSPHOROUS 3.8 mg/dL (2.5-4.9); THYROID STIM HORMONE (HS) 1.58 uIU/ml (0.358-4.75); TOTAL PROTEIN 6.2 gm/dL (6.4-8.2)
--- NOTE | 2019-11-07 07:57 | NUR ---
PHYSICAL THERAPY Screen received pt admit from home if has a decline from baseline functional status please consult PT thank you Maura Valderrama PT
[2019-11-07 08:00] VITALS: BP 110/58
--- NOTE | 2019-11-07 08:42 | NUR ---
Dr. Bear notified of wound care recommendations.
--- NOTE | 2019-11-07 08:50 | NUR ---
RESTING IN BED. NO C/O AT THIS TIME. ALBUMIN INFUSING WITH NO PROBLEM. CALL LIGHT IN REACH. SEE SHIFT ASSESSMENT.
[2019-11-07 09:00] VITALS: BP 110/58
--- NOTE | 2019-11-07 09:00 | NUR ---
Regulatory Services Consultant in to talk to patient. Patient states lives at home with daughter. There are few steps in the home. Physician: kurt davis Pharmacy: [facility] health services: [facility] Patient's level of ADLs: INDEPENDENT Patient has working utilities: all working DME: none Follow-up physician's appointment after d/c: will be made by hospitalist nurse director upon discharge Does patient want to access PORTAL?: no Discharge plan discussed with patient he lives at home with daughter, he is independent in adls and ambulation, he states he will return home when medically stable,. MORENO PARRA
--- NOTE | 2019-11-07 10:48 | NUR ---
ORTHOSTATIC TAKEN. + ORTHO BUT PT ASYMPTOMATIC.
--- NOTE | 2019-11-07 10:51 | NUR ---
DR. HIGGINS MADE AWARE OF ORTHOSTATIC BP/
[2019-11-07 12:00] VITALS: BP 114/65
--- NOTE | 2019-11-07 12:00 | NUR ---
PT RESTING IN BED. IVF INFUSING WITH NO PROBLEM. CALL LIGHT IN REACH.
--- NOTE | 2019-11-07 15:56 | NUR ---
Nursing screen received as well as occupational therapy orders. Will follow up with patient. Thank you. Tete Hazel, OTR/L
[2019-11-07 16:00] VITALS: BP 129/61
--- NOTE | 2019-11-07 16:20 | NUR ---
Patient resting quietly with no c/o discomfort. Respirations easy and regular. Vital signs stable. No overt distress. JANEEN HOFF
--- NOTE | 2019-11-07 17:13 | NUR ---
PRJoann OWEN GIVEN D/T PT COMPLAINING OF R LIP PAIN WHERE WOUND IS LOCATED
[2019-11-07 20:00] VITALS: BP 124/54
[2019-11-08] VITALS: BP 130/59
[2019-11-08 07:26] LABS: BASO # 0.1 10*3/uL (0.0-0.1); BASO % 0.8 % (0.0-1.0); EOS # 0.4 10*3/uL (0.0-0.4); EOS % 5.7 % (1.0-4.0); HEMATOCRIT 29.2 % (42.0-52.0); HEMOGLOBIN 9.1 g/dl (14.0-18.0); LYMPH # 1.8 10*3/uL (1.3-4.4); LYMPH % 26.4 % (27.0-41.0); MEAN CELL VOLUME 101.7 fl (80.0-94.0); MEAN CORPUSCULAR HGB 31.7 pg (27.0-31.0); MEAN CORPUSCULAR HGB CONC 31.2 g/dl (33.0-37.0); MEAN PLATELET VOLUME 10.5 fl (9.6-12.3); MONO # 0.9 10*3/uL (0.1-1.0); MONO % 12.8 % (3.0-9.0); NEUT # 3.6 10*3/uL (2.3-7.9); PLATELET COUNT AUTOMATED 387 10*3/uL (130-400); RED BLOOD COUNT 2.87 10*6/uL (4.50-5.90); RED CELL DISTRI WIDTH 13.6 % (0-14.5); WHITE BLOOD COUNT 6.6 10*3/uL (4.8-10.8)
[2019-11-08 07:46] LABS: CHLORIDE 116 mmol/L (98-107); CREATININE 1.12 mg/dL (0.70-1.30); POTASSIUM 3.4 mmol/L (3.5-5.1); SODIUM 144 mmol/L (136-145)
[2019-11-08 07:47] LABS: BUN 32 mg/dl (7-24)
[2019-11-08 07:52] VITALS: BP 118/62
--- NOTE | 2019-11-08 08:00 | NUR ---
AM ASSESSMENT COMPLETE AND CHARTED. RESTING IN BED COMFORTABLY, AROUSED WHEN CALLED BY NAME. NO COMPLAINTS AT THIS TIME. CALL LIGHT WITHIN REACH. WILL CONTINUE TO MONITOR. BENNY SOTO [facility]
--- NOTE | 2019-11-08 09:00 | NUR ---
case management visits with patient, sister present, patient states he will return home possibly today and denies any home needs, case management will follow
[2019-11-08] MEDS ORDERED: NORVASC5 MG PO (09:56)
--- NOTE | 2019-11-08 10:20 | NUR ---
PT IS RESTING IN BED. NO COMPLAINTS AT THIS TIME. ORDERED BREAKFAST AT 1000. BENNY SOTO HANNA
[2019-11-08 12:00] VITALS: BP 101/70
--- NOTE | 2019-11-08 12:15 | NUR ---
IV D/C'D, SITE ASYMPTOMATIC. BENNY SOTO SPHANNACC
--- NOTE | 2019-11-08 12:30 | NUR ---
Discharge instructions reviewed with patient/family. Patient receptive and verbalizes understanding. Follow-up care arranged. Written instructions given to patient. discharged pt to lobby via w/c accompanied by student nurse, condition stable radha shepherdcc
== END 2019-11-08 12:30 | disposition home or self-care (01) | DRG 682 ==
LOC: ED 15:33 → 4E 17:49 → EDHOLD 17:49 → 4E 18:34
PROVIDERS: Emergency Medicine; Family Medicine; Student in an Organized Health Care Education/Training Program; ADMIT Internal Medicine
DX: N17.0 Acute kidney failure with tubular necrosis (principal); E43 Unspecified severe protein-calorie malnutrition; R57.9 Shock, unspecified; D68.69 Other thrombophilia; E86.0 Dehydration; E87.8 Other disorders of electrolyte and fluid balance, not elsewhere classified; E11.65 Type 2 diabetes mellitus with hyperglycemia; E87.6 Hypokalemia; D53.9 Nutritional anemia, unspecified; E83.41 Hypermagnesemia; E83.52 Hypercalcemia; I10 Essential (primary) hypertension; I48.0 Paroxysmal atrial fibrillation; E66.9 Obesity, unspecified; F41.1 Generalized anxiety disorder; F32.5 Major depressive disorder, single episode, in full remission; D47.3 Essential (hemorrhagic) thrombocythemia; F10.10 Alcohol abuse, uncomplicated; Z79.82 Long term (current) use of aspirin; Z68.27 Body mass index [BMI] 27.0-27.9, adult; Z79.899 Other long term (current) drug therapy

== ENCOUNTER 2020-05-05 15:27 | Emergency (ER) | payer MEDICAID ==
[~2020-05-05] VITALS: Wt 84.4 kg
[~2020-05-05 15:27] MED LIST changes: +NORVASC5 MG PO
[2020-05-05 15:50] LABS: HEMATOCRIT 32.7 % (42.0-52.0); MEAN CELL VOLUME 88.4 fl (80.0-94.0); MEAN CORPUSCULAR HGB 29.5 pg (27.0-31.0); MEAN CORPUSCULAR HGB CONC 33.3 g/dl (33.0-37.0); MEAN PLATELET VOLUME 9.4 fl (9.6-12.3); NUCLEATED RED BLOOD CELL 0.1 10*3/uL (0.0-0.0); NUCLEATED RED BLOOD CELL 1.4 % (0.0-0.0); PLATELET COUNT AUTOMATED 342 10*3/uL (130-400); RED CELL DISTRI WIDTH 15.4 % (0-14.5); WHITE BLOOD COUNT 8.1 10*3/uL (4.8-10.8)
[2020-05-05 15:54] VITALS: BP 100/62
[2020-05-05 16:15] LABS: BASOPHILS 1 % (0-1); PLATELET SUFFICIENCY NORMAL (NORMAL); TOTAL CELLS COUNTED 100 #CELLS
[2020-05-05 16:17] LABS: ALBUMIN 3.5 gm/dl (3.1-4.5); CREATININE 2.11 mg/dL (0.70-1.30); POTASSIUM 2.9 mmol/L (3.5-5.1); TOTAL PROTEIN 7.2 gm/dL (6.4-8.2)
[2020-05-05] MEDS ORDERED: Motrin,Rufen800 MG PO (17:37)
== END 2020-05-05 17:34 | disposition home or self-care (01) ==
LOC: ED 15:27
PROVIDERS: Emergency Medicine
DX: N48.89 Other specified disorders of penis (principal); F10.10 Alcohol abuse, uncomplicated; R42 Dizziness and giddiness; M54.5 Low back pain; Z79.899 Other long term (current) drug therapy; Z79.82 Long term (current) use of aspirin; Y90.9 Presence of alcohol in blood, level not specified

== ENCOUNTER 2022-12-15 11:35 | Emergency (ER) | payer MEDICAID ==
[~2022-12-15] VITALS: Ht 172.7 cm; Wt 76.2 kg
[~2022-12-15 11:35] MED LIST changes: +Motrin,Rufen800 MG PO
[2022-12-15 11:53] VITALS: BP 99/69
== END 2022-12-15 13:50 | disposition home or self-care (01) ==
LOC: ED 11:35
DX: S05.12XA Contusion of eyeball and orbital tissues, left eye, initial encounter (principal); M70.21 Olecranon bursitis, right elbow; M25.512 Pain in left shoulder; F32.A Depression, unspecified; E11.9 Type 2 diabetes mellitus without complications; I10 Essential (primary) hypertension; Z87.442 Personal history of urinary calculi; Z98.890 Other specified postprocedural states; W19.XXXA Unspecified fall, initial encounter; Y93.89 Activity, other specified; Y92.89 Other specified places as the place of occurrence of the external cause; Y99.8 Other external cause status

== ENCOUNTER 2023-03-23 18:19 | Emergency (ER) | payer MEDICAID ==
[~2023-03-23] VITALS: Ht 172.7 cm; Wt 75.9 kg
[2023-03-23 18:46] LABS: BASO # 0.1 10*3/uL (0.0-0.1); BASO % 1.4 % (0.0-1.0); EOS # 0.1 10*3/uL (0.0-0.4); EOS % 2.4 % (1.0-4.0); HEMATOCRIT 35.2 % (42.0-52.0); LYMPH # 1.8 10*3/uL (1.3-4.4); LYMPH % 34.9 % (27.0-41.0); MEAN CORPUSCULAR HGB 35.2 pg (27.0-31.0); MEAN CORPUSCULAR HGB CONC 33.2 g/dl (33.0-37.0); MEAN PLATELET VOLUME 8.5 fl (9.6-12.3); MONO # 0.5 10*3/uL (0.1-1.0); MONO % 9.7 % (3.0-9.0); NEUT # 2.6 10*3/uL (2.3-7.9); NEUT % 51.2 % (47.0-73.0); PLATELET COUNT AUTOMATED 211 10*3/uL (130-400); RED BLOOD COUNT 3.32 10*6/uL (4.50-5.90); RED CELL DISTRI WIDTH 15.2 % (0-14.5); WHITE BLOOD COUNT 5.1 10*3/uL (4.8-10.8)
[2023-03-23 18:59] LABS: ACT PARTIAL THROMBO TIME 26.8 SECONDS (20.0-32.1); INTERNATIONAL NORM RATIO 1.1 (2.0-3.5)
[2023-03-23 19:16] LABS: ALKALINE PHOSPHATASE 95 U/L (46-116); BUN 14 mg/dl (9-23); CHLORIDE 104 mmol/L (98-107); CPK 48 U/L (34-171); LIPASE 45 U/L (12-53); POTASSIUM 3.6 mmol/L (3.4-5.1); SGPT/ALT 57 U/L (10-49)
[2023-03-23 19:17] LABS: ETHYL ALCOHOL 361.1 mg/dl (<3)
[2023-03-23 22:09] LABS: BILIRUBIN Negative (Negative); BLOOD Negative (Negative); CLARITY Clear (Clear); COLOR Yellow (Yellow); GLUCOSE Negative (Negative); KETONE Trace (Negative); LEUKO ESTERASE Negative (Negative); NITRITE Negative (Negative); SPECIFIC GRAVITY 1.015 (1.001-1.030)
[2023-03-23 22:19] LABS: BACTERIA TRACE
[2023-03-24 06:16] VITALS: BP 153/86
== END 2023-03-24 07:10 | disposition home or self-care (01) ==
LOC: ED 18:19
PROVIDERS: Emergency Medicine
DX: F10.920 Alcohol use, unspecified with intoxication, uncomplicated (principal); E83.42 Hypomagnesemia; E87.20 Acidosis, unspecified; D53.9 Nutritional anemia, unspecified; R74.01 Elevation of levels of liver transaminase levels; M54.9 Dorsalgia, unspecified; Z79.899 Other long term (current) drug therapy; Z79.82 Long term (current) use of aspirin; Y90.8 Blood alcohol level of 240 mg/100 ml or more

== ENCOUNTER 2023-05-24 18:56 | Emergency (ER) | payer MEDICAID ==
[2023-05-24 19:50] LABS: BASO # 0.1 10*3/uL (0.0-0.1); BASO % 1.2 % (0.0-1.0); EOS # 0.1 10*3/uL (0.0-0.4); HEMATOCRIT 31.4 % (42.0-52.0); MEAN CORPUSCULAR HGB 35.4 pg (27.0-31.0); MEAN PLATELET VOLUME 9.4 fl (9.6-12.3); MONO # 0.7 10*3/uL (0.1-1.0); MONO % 13.4 % (3.0-9.0); NEUT # 2.2 10*3/uL (2.3-7.9); PLATELET COUNT AUTOMATED 216 10*3/uL (130-400); RED BLOOD COUNT 3.11 10*6/uL (4.50-5.90); RED CELL DISTRI WIDTH 14.6 % (0-14.5); WHITE BLOOD COUNT 5.1 10*3/uL (4.8-10.8)
[2023-05-24 20:17] LABS: ALKALINE PHOSPHATASE 140 U/L (46-116); BUN 13 mg/dl (9-23); CHLORIDE 104 mmol/L (98-107); POTASSIUM 2.8 mmol/L (3.4-5.1); SGPT/ALT 58 U/L (10-49); TOTAL PROTEIN 6.5 gm/dL (6.0-8.0)
[2023-05-24 22:42] LABS: URINE AMPHETAMINES Negative (1000ng/ml); URINE BARBITURATES Negative (200ng/ml); URINE BENZODIAZEPINES Negative (200ng/ml)
[2023-05-24 22:43] LABS: URINE CANNABINOIDS (THC) Negative (50ng/ml); URINE COCAINE Negative (300ng/ml); URINE METHADONE Negative (300ng/ml); URINE OPIATES Negative (300ng/ml); URINE PHENCYCLIDINE Negative (25ng/ml)
[2023-05-24 22:44] LABS: BACTERIA 1+; BILIRUBIN Negative (Negative); BLOOD Negative (Negative); CLARITY Clear (Clear); COLOR Yellow (Yellow); EPITHELIAL CELLS 0-2; GLUCOSE Negative (Negative); KETONE Negative (Negative); LEUKO ESTERASE Negative (Negative); NITRITE Negative (Negative); RBC 0-2 rbc/hpf (0-2); SPECIFIC GRAVITY 1.015 (1.001-1.030); WBC 0-2 wbc/hpf (0-5)
[2023-05-25 00:03] VITALS: BP 121/76
== END 2023-05-25 02:37 | disposition home or self-care (01) ==
LOC: ED 18:56
PROVIDERS: Nurse Practitioner
DX: F10.20 Alcohol dependence, uncomplicated (principal); F32.A Depression, unspecified; E11.9 Type 2 diabetes mellitus without complications; Z79.4 Long term (current) use of insulin; I10 Essential (primary) hypertension; I48.91 Unspecified atrial fibrillation; Z87.442 Personal history of urinary calculi; F12.90 Cannabis use, unspecified, uncomplicated; Z98.890 Other specified postprocedural states; Y90.0 Blood alcohol level of less than 20 mg/100 ml

== ENCOUNTER 2023-07-05 19:57 | Emergency (ER) | payer MEDICAID ==
[~2023-07-05] VITALS: Ht 177.8 cm; Wt 75.7 kg
[2023-07-05 20:34] LABS: BASO % 0.3 % (0.0-1.0); EOS # 0.1 10*3/uL (0.0-0.4); EOS % 0.6 % (1.0-4.0); HEMATOCRIT 39.3 % (42.0-52.0); LYMPH # 1.3 10*3/uL (1.3-4.4); LYMPH % 15.3 % (27.0-41.0); MEAN CELL VOLUME 102.1 fl (80.0-94.0); MEAN CORPUSCULAR HGB 34.8 pg (27.0-31.0); MEAN CORPUSCULAR HGB CONC 34.1 g/dl (33.0-37.0); MEAN PLATELET VOLUME 9.6 fl (9.6-12.3); MONO # 0.6 10*3/uL (0.1-1.0); MONO % 6.5 % (3.0-9.0); NEUT # 6.6 10*3/uL (2.3-7.9); NEUT % 76.6 % (47.0-73.0); PLATELET COUNT AUTOMATED 270 10*3/uL (130-400); RED BLOOD COUNT 3.85 10*6/uL (4.50-5.90); RED CELL DISTRI WIDTH 14.8 % (0-14.5); WHITE BLOOD COUNT 8.7 10*3/uL (4.8-10.8)
[2023-07-05 20:47] LABS: ACT PARTIAL THROMBO TIME 24.8 SECONDS (20.0-32.1); INTERNATIONAL NORM RATIO 1.1 (2.0-3.5)
[2023-07-05 20:55] LABS: ALKALINE PHOSPHATASE 135 U/L (46-116); BUN 14 mg/dl (9-23); CHLORIDE 92 mmol/L (98-107); LIPASE 53 U/L (12-53); SGPT/ALT 49 U/L (10-49); TOTAL PROTEIN 7.8 gm/dL (6.0-8.0)
[2023-07-05 21:01] LABS: POTASSIUM 2.3 mmol/L (3.4-5.1)
[2023-07-05 22:49] VITALS: BP 109/82
== END 2023-07-06 00:49 | disposition home or self-care (01) ==
LOC: ED 19:57
PROVIDERS: Internal Medicine
DX: M54.50 Low back pain, unspecified (principal); R51.9 Headache, unspecified; F32.A Depression, unspecified; E11.9 Type 2 diabetes mellitus without complications; I10 Essential (primary) hypertension; I48.91 Unspecified atrial fibrillation; Z87.442 Personal history of urinary calculi; Z98.890 Other specified postprocedural states; F12.90 Cannabis use, unspecified, uncomplicated; F17.200 Nicotine dependence, unspecified, uncomplicated

== ENCOUNTER 2023-07-14 18:10 | Emergency (ER) | payer MEDICAID ==
[~2023-07-14] VITALS: Ht 172.7 cm; Wt 67.1 kg
[2023-07-14 18:28] LABS: BASO # 0.1 10*3/uL (0.0-0.1); BASO % 1.3 % (0.0-1.0); EOS # 0.3 10*3/uL (0.0-0.4); EOS % 3.8 % (1.0-4.0); HEMATOCRIT 35.4 % (42.0-52.0); LYMPH # 1.5 10*3/uL (1.3-4.4); LYMPH % 21.2 % (27.0-41.0); MEAN CELL VOLUME 99.7 fl (80.0-94.0); MEAN CORPUSCULAR HGB 34.9 pg (27.0-31.0); MEAN PLATELET VOLUME 8.8 fl (9.6-12.3); MONO # 0.5 10*3/uL (0.1-1.0); MONO % 7.5 % (3.0-9.0); NEUT # 4.6 10*3/uL (2.3-7.9); NEUT % 65.5 % (47.0-73.0); PLATELET COUNT AUTOMATED 274 10*3/uL (130-400); RED BLOOD COUNT 3.55 10*6/uL (4.50-5.90); RED CELL DISTRI WIDTH 14.6 % (0-14.5); WHITE BLOOD COUNT 7.1 10*3/uL (4.8-10.8)
[2023-07-14 18:39] LABS: ACT PARTIAL THROMBO TIME 25.6 SECONDS (20.0-32.1)
[2023-07-14 19:01] LABS: ALKALINE PHOSPHATASE 155 U/L (46-116); BUN 12 mg/dl (9-23); CHLORIDE 101 mmol/L (98-107); LIPASE 94 U/L (12-53); POTASSIUM 3.1 mmol/L (3.4-5.1); SGPT/ALT 40 U/L (10-49); TOTAL PROTEIN 6.7 gm/dL (6.0-8.0)
[2023-07-14 22:42] LABS: BILIRUBIN 1+ (Negative); BLOOD Negative (Negative); CLARITY Clear (Clear); COLOR Dark Yellow (Yellow); GLUCOSE Negative (Negative); KETONE Trace (Negative); LEUKO ESTERASE Negative (Negative); NITRITE Negative (Negative); SPECIFIC GRAVITY 1.015 (1.001-1.030)
[2023-07-14 23:08] LABS: MUCOUS 1+; RBC 0-2 rbc/hpf (0-2)
[2023-07-14 23:55] VITALS: BP 153/87
== END 2023-07-15 00:13 ==
LOC: ED 18:10
PROVIDERS: Internal Medicine
DX: S22.5XXA Flail chest, initial encounter for closed fracture (principal); R42 Dizziness and giddiness; R11.2 Nausea with vomiting, unspecified; J94.2 Hemothorax; R19.7 Diarrhea, unspecified; J93.9 Pneumothorax, unspecified; Z98.890 Other specified postprocedural states; F12.90 Cannabis use, unspecified, uncomplicated; F17.290 Nicotine dependence, other tobacco product, uncomplicated; W06.XXXA Fall from bed, initial encounter; Y93.89 Activity, other specified; Y92.89 Other specified places as the place of occurrence of the external cause; Y99.8 Other external cause status

== ENCOUNTER 2024-08-12 19:33 | Emergency (ER) | payer SELFPAY ==
[~2024-08-12] VITALS: Ht 182.8 cm; Wt 77.1 kg
[2024-08-12] MEDS ORDERED: MULTIVITAMIN CONCENTRATE (IV) 10 ML,Thiamine 100 MG,FOLIC ACID 1 MG in SODIUM CHLORIDE ... IV ONE (19:40)
[2024-08-12 19:59] LABS: BASO # 0.1 10*3/uL (0.0-0.1); BASO % 2.2 % (0.0-1.0); EOS # 0.1 10*3/uL (0.0-0.4); EOS % 2.5 % (1.0-4.0); HEMATOCRIT 37.2 % (42.0-52.0); LYMPH # 2.2 10*3/uL (1.3-4.4); MEAN CELL VOLUME 104.2 fl (80.0-94.0); MEAN CORPUSCULAR HGB 34.2 pg (27.0-31.0); MEAN CORPUSCULAR HGB CONC 32.8 g/dl (33.0-37.0); MONO # 0.3 10*3/uL (0.1-1.0); MONO % 5.4 % (3.0-9.0); NEUT # 2.8 10*3/uL (2.3-7.9); NEUT % 50.4 % (47.0-73.0); PLATELET COUNT AUTOMATED 338 10*3/uL (130-400); RED BLOOD COUNT 3.57 10*6/uL (4.50-5.90); RED CELL DISTRI WIDTH 12.8 % (0-14.5); WHITE BLOOD COUNT 5.6 10*3/uL (4.8-10.8)
[2024-08-12 20:10] LABS: ACT PARTIAL THROMBO TIME 25.4 SECONDS (20.0-32.1)
[2024-08-12 20:37] LABS: BUN 11 mg/dl (9-23); CHLORIDE 110 mmol/L (98-107); LIPASE 39 U/L (12-53); POTASSIUM 3.7 mmol/L (3.4-5.1)
[2024-08-12 20:42] LABS: ETHYL ALCOHOL 353.3 mg/dl (<3)
[2024-08-12] MEDS ORDERED: LORazepam 2 MG/ML VIAL IV ONE (20:55)
[2024-08-12] MEDS ORDERED: AZITHROMYCIN 250 ML IV ONE (22:50)
[2024-08-12] MEDS ORDERED: Ceftriaxone Sodium 1 GM/10 ML SYR IV ONE (22:50)
[2024-08-13 09:44] VITALS: BP 148/80
== END 2024-08-13 11:49 | disposition short-term general hospital (02) ==
LOC: ED 19:33
PROVIDERS: Internal Medicine
DX: S22.42XA Multiple fractures of ribs, left side, initial encounter for closed fracture (principal); S27.321A Contusion of lung, unilateral, initial encounter; M54.9 Dorsalgia, unspecified; J93.9 Pneumothorax, unspecified; F32.A Depression, unspecified; E11.9 Type 2 diabetes mellitus without complications; I10 Essential (primary) hypertension; I48.91 Unspecified atrial fibrillation; F12.90 Cannabis use, unspecified, uncomplicated; F10.129 Alcohol abuse with intoxication, unspecified; Z98.890 Other specified postprocedural states; Z87.442 Personal history of urinary calculi; Y90.8 Blood alcohol level of 240 mg/100 ml or more; W17.89XA Other fall from one level to another, initial encounter; Y93.89 Activity, other specified; Y92.096 Garden or yard of other non-institutional residence as the place of occurrence of the external cause; Y99.8 Other external cause status